=== PATIENT | female | born 1980 | race Caucasian/White ===

== ENCOUNTER 2017-08-18 16:36 | Emergency (ER) | payer OTHER ==
--- NOTE | 2017-08-18 19:16 | RAD ---
INDICATION: Intracranial injury COMPARISON: CT brain May 12, 2016 TECHNIQUE: Noncontrast axial source images were acquired from the skull base to the vertex. FINDINGS: Ventricles/sulci: The ventricles and cisterns are normal in size and configuration for age. Brain parenchyma: There is no focal parenchymal finding, evidence of intracranial mass, or intracranial mass effect. Intracranial hemorrhage:None. Extra-axial spaces: There are no abnormal extra axial fluid collections or evidence of extra-axial mass. Calvarium: There is no calvarial fracture or other calvarial abnormality. Scalp: There is no evidence of scalp or extracalvarial soft tissue abnormality. Paranasal sinuses/mastoid: The paranasal sinuses and mastoid air cells are clear. Other: None. IMPRESSION: NEGATIVE EXAMINATION
--- NOTE | 2017-08-18 19:39 | ED ---
Head Injury - HPI Summary HPI Summary: Patient presents to the ED with CC of headache after sustaining a head injury on Tuesday night after falling out of bed. She denies confusion or memory loss. For 3 days she has been experiencing N/V and 9/10 LORENZANA with intermittent blurry vision. She has had CT scans in the past and denies any abnormalities. Denies other symptoms. She does not work and has an unhealthy lifestyle. at bedside. She denies any bleeding or lesions, but has a cephalohematoma to the right parietal area. Denies LOC. Denies chest pain and SOB. She states her at home zofran and ibuprofen have not helped and has been taking her hydrocodone without improvement of pain. Denies blood thinners. - History Of Current Complaint Chief Complaint: EDHeadInjury Stated Complaint: FALL 08/14-HIT HEAD,PAIN & VOMITING Time Seen by Provider: 08/18/17 17:43 Hx Obtained From: Patient Hx Last Menstrual Period: 08/25/12 Mechanism Of Injury: Direct Blow Onset/Duration: Started Hours Ago Onset of Pain: Hours Severity Currently: Moderate Severity Initially: Moderate Pain Intensity: 9 Pain Scale Used: 0-10 Numeric Location of Head Injury: Parietal - right Character: Dull, Throbbing Alleviating Factor(s): Rest Associated Signs And Symptoms: Nausea, Vomiting - Risk Factors SDH Risk Factor: Negative - Allergies/Home Medications Allergies/Adverse Reactions: Allergies Allergy/AdvReac Type Severity Reaction Status Date / Time Ketorolac Tromethamine Allergy TURNS Verified 08/18/17 16:39 [From Toradol] BRIGHT RED PMH/Surg Hx/FS Hx/Imm Hx Previously Healthy: Yes Endocrine/Hematology History: Denies: Hx Anticoagulant Therapy, Hx Diabetes, Hx Thyroid Disease, Other Endocrine/Hematological Disorders Cardiovascular History: Denies: Hx Congestive Heart Failure, Hx Hypertension, Hx Pacemaker/ICD, Other Cardiovascular Problems/Disorders Respiratory History: Denies: Hx Asthma, Hx Chronic Obstructive Pulmonary Disease (COPD), Other Respiratory Problems/Disorders GI History: Reports: Hx Gall Bladder Disease, Other GI Disorders - appendectomy , rashi History: Reports: Hx Kidney Stones, Hx Renal Disease - Hx Kidney Stones, Other Problems/Disorders - hx of kidney stones - lithotripsy w/ stents Musculoskeletal History: Reports: Hx Arthritis, Hx Back Problems, Hx Fibromyalgia Denies: Other Musculoskeletal History Sensory History: Reports: Hx Contacts or Glasses Denies: Other Sensory Impairments Opthamlomology History: Reports: Hx Contacts or Glasses Denies: Other Sensory Impairments Neurological History: Reports: Hx Seizures, Other Neuro Impairments/Disorders - fibromyalgia Denies: Hx Dementia Psychiatric History: Reports: Hx Anxiety, Hx Depression Denies: Hx Substance Abuse, Other Psychiatric Issues/Disorders - Cancer History Cancer Type, Location and Year: cervical CA first dx May 2012 - Surgical History Surgery Procedure, Year, and Place: Hysterectomy 2012, tubal ligation 2000, appendectomy and cholecystectomy within last ten years, tonsillectomy and adenoidectomy 2003, stents in kidneys 2010, kidneystones lithotripsy 2009 - Immunization History Date of Tetanus Vaccine: Unk Date of Influenza Vaccine: None Immunizations Up to Date: Yes Infectious Disease History: No Infectious Disease History: Reports: Hx of Known/Suspected MRSA - Left armpit 4- 5 years ago Denies: Hx Hepatitis, Hx Human Immunodeficiency Virus (HIV), History Other Infectious Disease, Traveled Outside the [place] in Last 30 Days - Family History Known Family History: Positive: Cardiac Disease, Hypertension - Social History Occupation: Unemployed Lives: With Family Alcohol Use: None Hx Substance Use: No Substance Use Type: Reports: None Smoking Status (MU): Heavy Every Day Tobacco Smoker Type: Cigarettes Amount Used/How Often: < 1/2 ppd Length of Time of Smoking/Using Tobacco: 23 years Review of Systems Constitutional: Negative Negative: Fever, Chills, Fatigue Eyes: Negative Cardiovascular: Negative Negative: Shortness Of Breath, Cough Positive: Vomiting, Nausea Genitourinary: Negative Positive: no symptoms reported Musculoskeletal: Negative Skin: Negative Positive: Headache All Other Systems Reviewed And Are Negative: Yes Physical Exam Triage Information Reviewed: Yes Vital Signs On Initial Exam: Initial Vitals Temp Pulse Resp BP Pulse Ox 96.8 F 115 20 104/73 95 08/18/17 16:39 08/18/17 16:39 08/18/17 16:39 08/18/17 16:39 08/18/17 16:39 Vital Signs Reviewed: Yes Appearance: Positive: Well-Appearing, Obese Skin: Positive: Skin Color Reflects Adequate Perfusion Head/Face: Positive: Normal Head/Face Inspection Eyes: Positive: EOMI, SUDHIR, Conjunctiva Clear Neck: Positive: Nontender, No Lymphadenopathy Respiratory/Lung Sounds: Positive: Clear to Auscultation, Breath Sounds Present Cardiovascular: Positive: RRR, Pulses are Symmetrical in both Upper and Lower Extremities Musculoskeletal: Positive: Strength/ROM Intact Neurological: Positive: Speech Normal Psychiatric: Positive: Normal, Affect/Mood Appropriate - Grey Coma Scale Best Eye Response: 4 - Spontaneous Best Motor Response: 6 - Obeys Commands Best Verbal Response: 5 - Oriented Coma Scale Total: 15 Diagnostics - Vital Signs Vital Signs Temp Pulse Resp BP Pulse Ox 08/18/17 16:39 96.8 F 115 20 104/73 95 - Laboratory Lab Statement: Any lab studies that have been ordered have been reviewed, and results considered in the medical decision making process. Head Injury Course/Dx Course Of Treatment: Patient is evaluated for head injury. GCS score >15 at 2h post injury. No suspected open or depressed skull fx, no sign of basal skull fx , no hemotympanum, raccoon eyes, Battles sign, CSF tiffani-/rhinorrhea, no emesis after injury, age <64yo, no amnesia greater than 30 minutes prior to trauma, and mechanism of injury was minimal impact with no MVA or fall greater than 3 ft. Complete neuro exam completed and WNL. Normal head/face inspection with no cephalohematoma. Reflexes intact. EOMI, SUDHIR, visual acuity intact. No obvious confusion or memory loss per patient and family. MMSE OK. GCS 15. Patient oriented to person, place and date. No obvious deformity or signs of trauma. Finger to nose, heel to toe OK. Speech normal, facial symmetry, normal gait, CN II-III intact. Patient denies LOC. ROM, strength, reflexes in upper and lower extremity intact, sensation intact. Patient discharged with return precautions and post-concussive symptoms explained to patient. Patient agrees to follow up and return if needed. CT brain obtained d/t 04/[address] continuing symptoms[address] brain is negative. She is encouraged brain rest and is OK with discharge at this time. I have advised she follow up with Dr. Boone next week. She agrees. VS stable on discharge. Tachy on arrival, but on discharge she is at 98. - Diagnoses Differential Diagnosis/HQI/PQRI: Concussion With LOC, Concussion Without LOC Provider Diagnoses: Concussion Discharge - Discharge Plan Condition: Stable Disposition: HOME Patient Education Materials: Concussion (ED) Referrals: Keith Boone MD [Primary Care Provider] - 7 Days Additional Instructions: Brain rest as much as possible This includes rest, dark rooms, sleeping and not focusing on anything for long periods of time Take Tylenol for any headaches and follow up with Dr. Boone next week
[2017-08-18 20:00] VITALS: BP 110/62
== END 2017-08-18 20:00 | disposition home or self-care (01) ==
LOC: ED 16:36
DX: S06.0X0A Concussion without loss of consciousness, initial encounter (principal); R11.2 Nausea with vomiting, unspecified; R51 Headache; F17.210 Nicotine dependence, cigarettes, uncomplicated; W06.XXXA Fall from bed, initial encounter; Y92.9 Unspecified place or not applicable
CPT/HCPCS: 70450; 99281

== ENCOUNTER 2017-09-05 18:52 | Emergency (ER) | payer OTHER ==
[2017-09-05 20:28] LABS: ABS Basophils 0.1 10^3/ul (0-0.2); ABS Eosinophils 0.3 10^3/ul (0-0.6); ABS Lymphocytes 4.5 10^3/ul (1.0-4.8); ABS Monocytes 1.1 10^3/ul (0-0.8); ABS Neutrophils 8.8 10^3/ul (1.5-7.7); ABS Nucleated RBC 0 10^3/ul; Eosinophil % 1.7 % (0-6); Hematocrit 42 % (35-47); Hemoglobin 14.2 g/dl (12.0-16.0); Lymphocyte % 30.7 % (25-47); Mean Corpuscular HGB Conc 34 g/dl (31-36); Mean Corpuscular Hemoglobin 28 pg (27-31); Mean Corpuscular Volume 82 fL (80-97); Mean Platelet Volume 10 um3 (7.4-10.4); Nucleated Red Blood Cells % 0; Platelet Count 245 10^3/ul (150-450); Red Blood Count 5.13 10^6/ul (4.0-5.4); Red Cell Distribution Width 15 % (10.5-15); White Blood Count 14.6 10^3/ul (3.5-10.8)
--- NOTE | 2017-09-05 20:30 | RAD ---
INDICATION: Chest pain. COMPARISON: Comparison is made with a prior study from July 05, 2015. TECHNIQUE: A portable view of the chest was obtained. FINDINGS: Cardiac and mediastinal contours appear to be within normal limits. The lungs are clear. No pleural effusion is seen. IMPRESSION: NO EVIDENCE FOR ACUTE DISEASE.
[2017-09-05 20:43] LABS: EGFR Non-African American 62.4 (>60)
[2017-09-05 21:45] VITALS: BP 118/75
--- NOTE | 2017-09-06 06:25 | ED ---
Antonino Albrecht Thomas, scribed for Jewel Atkinson on 09/05/17 at 1957 . HPI Chest Pain - HPI Summary HPI Summary: The patient is a 37 year old female presenting to the emergency department complaining of left-sided chest pain that has been intermittent for the last four days ago. The pain radiates to her left shoulder and her back. The pain is rated 8/10. She describes the pain as crushing. The pain is aggravated by palpation. The patient additionally complains of shortness of breath. The patient denies nausea, vomiting, and dizziness. Past medical history includes HTN. She denies CAD and DM. She is a current smoker. - History of Current Complaint Chief Complaint: EDChestPainROMI Time Seen by Provider: 09/05/17 19:51 Hx Obtained From: Patient Hx Last Menstrual Period: 08/25/12 Onset/Duration: Started Days Ago - 4 Timing: Intermittent, Lasting Days - 4 Current Severity: Severe Pain Intensity: 8 Pain Scale Used: 0-10 Numeric Chest Pain Location: Discrete at: - Left-sided Chest Pain Radiates: Yes Chest Pain Radiates To:: Shoulder - right Character: Crushing Aggravating Factor(s): Other: - Palpation Associated Signs and Symptoms: Positive: Chest Pain, Shortness of Breath. Negative: Dizziness, Fever, Nausea, Vomiting Related History: Obesity - Allergy/Home Medications Allergies/Adverse Reactions: Allergies Allergy/AdvReac Type Severity Reaction Status Date / Time Ketorolac Tromethamine Allergy TURNS Verified 09/05/17 19:08 [From Toradol] BRIGHT RED PMH/Surg Hx/FS Hx/Imm Hx Endocrine/Hematology History: Denies: Hx Anticoagulant Therapy, Hx Diabetes, Hx Thyroid Disease, Other Endocrine/Hematological Disorders Cardiovascular History: Reports: Hx Hypertension Denies: Hx Congestive Heart Failure, Hx Coronary Artery Disease, Hx Pacemaker /ICD, Other Cardiovascular Problems/Disorders Respiratory History: Denies: Hx Asthma, Hx Chronic Obstructive Pulmonary Disease (COPD), Other Respiratory Problems/Disorders GI History: Reports: Hx Gall Bladder Disease, Other GI Disorders - appendectomy , rashi History: Reports: Hx Kidney Stones, Hx Renal Disease - Hx Kidney Stones, Other Problems/Disorders - hx of kidney stones - lithotripsy w/ stents Musculoskeletal History: Reports: Hx Arthritis, Hx Back Problems, Hx Fibromyalgia Denies: Other Musculoskeletal History Sensory History: Reports: Hx Contacts or Glasses Denies: Other Sensory Impairments Opthamlomology History: Reports: Hx Contacts or Glasses Denies: Other Sensory Impairments Neurological History: Reports: Hx Seizures, Other Neuro Impairments/Disorders - fibromyalgia Denies: Hx Dementia Psychiatric History: Reports: Hx Anxiety, Hx Depression Denies: Hx Substance Abuse, Other Psychiatric Issues/Disorders - Cancer History Cancer Type, Location and Year: cervical CA first dx May 2012 - Surgical History Surgery Procedure, Year, and Place: Hysterectomy 2012, tubal ligation 2000, appendectomy and cholecystectomy within last ten years, tonsillectomy and adenoidectomy 2003, stents in kidneys 2010, kidneystones lithotripsy 2009 - Immunization History Date of Tetanus Vaccine: Unk Date of Influenza Vaccine: None Infectious Disease History: No Infectious Disease History: Reports: Hx of Known/Suspected MRSA - Left armpit 4- 5 years ago Denies: Hx Hepatitis, Hx Human Immunodeficiency Virus (HIV), History Other Infectious Disease, Traveled Outside the [place] in Last 30 Days - Family History Known Family History: Positive: Cardiac Disease, Hypertension - Social History Alcohol Use: None Hx Substance Use: No Substance Use Type: Reports: None Smoking Status (MU): Heavy Every Day Tobacco Smoker Type: Cigarettes Amount Used/How Often: < 1/2 ppd Length of Time of Smoking/Using Tobacco: 23 years Review of Systems Negative: Fever Positive: Chest Pain Positive: Shortness Of Breath Negative: Vomiting, Nausea Neurological: Negative - dizziness All Other Systems Reviewed And Are Negative: Yes Physical Exam - Summary Physical Exam Summary: Appearance: Well appearing, no pain distress Skin: warm, dry, reflects adequate perfusion Head/face: normal Eyes: EOMI, SUDHIR ENT: normal Neck: supple, non-tender Respiratory: CTA, breath sounds present Cardiovascular: RRR, pulses symmetrical Chest: Her sternum is tender to the left chest. Abdomen: non-tender, soft Bowel: present Musculoskeletal: normal, strength/ROM intact Neuro: normal, sensory motor intact, A&Ox3 Triage Information Reviewed: Yes Vital Signs On Initial Exam: Initial Vitals Temp Pulse Resp BP Pulse Ox 98.4 F 79 18 120/76 99 09/05/17 19:06 09/05/17 19:06 09/05/17 19:06 09/05/17 19:06 09/05/17 19:06 Vital Signs Reviewed: Yes Diagnostics - Vital Signs Vital Signs Temp Pulse Resp BP Pulse Ox 09/05/17 19:06 98.4 F 79 18 120/76 99 - Laboratory Lab Results: Lab Results 09/05/17 09/05/17 09/05/17 Range/Units 20:16 20:16 20:16 WBC 14.6 H (3.5-10.8) 10^3/ul RBC 5.13 (4.0-5.4) 10^6/ul Hgb 14.2 (12.0-16.0) g/dl Hct 42 (35-47) % MCV 82 (80-97) fL MCH 28 (27-31) pg MCHC 34 (31-36) g/dl RDW 15 (10.5-15) % Plt Count 245 (150-450) 10^3/ul MPV 10 (7.4-10.4) um3 Neut % (Auto) 59.9 (38-83) % Lymph % (Auto) 30.7 (25-47) % Walton % (Auto) 7.2 (1-9) % Eos % (Auto) 1.7 (0-6) % Baso % (Auto) 0.5 (0-2) % Absolute Neuts (auto) 8.8 H (1.5-7.7) 10^3/ul Absolute Lymphs (auto) 4.5 (1.0-4.8) 10^3/ul Absolute Monos (auto) 1.1 H (0-0.8) 10^3/ul Absolute Eos (auto) 0.3 (0-0.6) 10^3/ul Absolute Basos (auto) 0.1 (0-0.2) 10^3/ul Absolute Nucleated RBC 0 10^3/ul Nucleated RBC % 0 APTT 30.2 (26.0-36.3) seconds D-Dimer, Quantitative < 200 (Less Than 230) ng/mL Sodium 136 (133-145) mmol/L Potassium 3.8 (3.5-5.0) mmol/L Chloride 100 L (101-111) mmol/L Carbon Dioxide 29 (22-32) mmol/L Anion Gap 7 (2-11) mmol/L BUN 18 (6-24) mg/dL Creatinine 0.99 H (0.51-0.95) mg/dL Est GFR ( Amer) 80.3 (>60) Est GFR (Non-Af Amer) 62.4 (>60) BUN/Creatinine Ratio 18.2 (8-20) Glucose 107 H (70-100) mg/dL Lactic Acid (0.5-2.0) mmol/L Calcium 9.3 (8.6-10.3) mg/dL Total Bilirubin 0.20 (0.2-1.0) mg/dL AST 23 (13-39) U/L ALT 31 (7-52) U/L Alkaline Phosphatase 101 (34-104) U/L Total Creatine Kinase 48 (10-223) U/L CK-MB (CK-2) 1.0 (0.6-6.3) ng/mL Troponin I 0.00 (<0.04) ng/mL Total Protein 7.6 (6.4-8.9) g/dL Albumin 3.8 (3.2-5.2) g/dL Globulin 3.8 (2-4) g/dL Albumin/Globulin Ratio 1.0 (1-3) TSH 2.23 (0.34-5.60) mcIU/mL 09/05/17 Range/Units 20:16 WBC (3.5-10.8) 10^3/ul RBC (4.0-5.4) 10^6/ul Hgb (12.0-16.0) g/dl Hct (35-47) % MCV (80-97) fL MCH (27-31) pg MCHC (31-36) g/dl RDW (10.5-15) % Plt Count (150-450) 10^3/ul MPV (7.4-10.4) um3 Neut % (Auto) (38-83) % Lymph % (Auto) (25-47) % Walton % (Auto) (1-9) % Eos % (Auto) (0-6) % Baso % (Auto) (0-2) % Absolute Neuts (auto) (1.5-7.7) 10^3/ul Absolute Lymphs (auto) (1.0-4.8) 10^3/ul Absolute Monos (auto) (0-0.8) 10^3/ul Absolute Eos (auto) (0-0.6) 10^3/ul Absolute Basos (auto) (0-0.2) 10^3/ul Absolute Nucleated RBC 10^3/ul Nucleated RBC % APTT (26.0-36.3) seconds D-Dimer, Quantitative (Less Than 230) ng/mL Sodium (133-145) mmol/L Potassium (3.5-5.0) mmol/L Chloride (101-111) mmol/L Carbon Dioxide (22-32) mmol/L Anion Gap (2-11) mmol/L BUN (6-24) mg/dL Creatinine (0.51-0.95) mg/dL Est GFR ( Amer) (>60) Est GFR (Non-Af Amer) (>60) BUN/Creatinine Ratio (8-20) Glucose (70-100) mg/dL Lactic Acid 1.4 (0.5-2.0) mmol/L Calcium (8.6-10.3) mg/dL Total Bilirubin (0.2-1.0) mg/dL AST (13-39) U/L ALT (7-52) U/L Alkaline Phosphatase (34-104) U/L Total Creatine Kinase (10-223) U/L CK-MB (CK-2) (0.6-6.3) ng/mL Troponin I (<0.04) ng/mL Total Protein (6.4-8.9) g/dL Albumin (3.2-5.2) g/dL Globulin (2-4) g/dL Albumin/Globulin Ratio (1-3) TSH (0.34-5.60) mcIU/mL Result Diagrams: 09/05/17 20:16 09/05/17 20:16 Lab Statement: Any lab studies that have been ordered have been reviewed, and results considered in the medical decision making process. - Radiology CXR Xray Interpretation: No Acute Changes - NO EVIDENCE FOR ACUTE DISEAES. Dr. Atkinson has reviewed this report. Radiology Interpretation Completed By: Radiologist - EKG 19:02 Cardiac Rate: Tachycardia EKG Rhythm: Sinus Tachycardia - at 105 BPM Re-Evaluation - Re-Evaluation First Eval Re-Evaluation Time: 21:35 Change: Unchanged Comment: The patient refused admission. Chest Pain Course/Dx - Course Assessment/Plan: The patient is a 37 year old female presenting to the emergency department complaining of left-sided chest pain that has been intermittent for the last four days ago. Bloodwork, CXR, and EKG were obtained. The patient wants to leave. We advised her to stay and repeat troponin, cardiology consult, and stress test in the morning. The patient wants to leave and follow up as an outpatient with her primary care provider. She refused admission to [facility] [place]. She will be discharged. - Chest Pain Differential Diagnosis/HQI/PQRI: Angina, Chest Wall, Lower Respiratory Infection - Diagnoses Provider Diagnoses: Atypical chest pain Discharge - Discharge Plan Condition: Stable Disposition: HOME Discharge Disposition Comment: Patient refused admission. Patient Education Materials: Chest Pain (ED) Referrals: Keith Boone MD [Primary Care Provider] - As Soon As Possible Additional Instructions: Follow up with your primary care provider as soon as possible. You may return to the emergency department at any time. The documentation as recorded by the Antonino prince Thomas accurately reflects the service I personally performed and the decisions made by , Jewel Atkinson.
== END 2017-09-05 21:50 | disposition home or self-care (01) ==
LOC: ED 18:52
DX: R07.89 Other chest pain (principal); F17.210 Nicotine dependence, cigarettes, uncomplicated; Z88.5 Allergy status to narcotic agent
CPT/HCPCS: 36415; 71045; 80053; 82550; 82553; 83605; 84443; 84484; 85025; 85379; 85730; 93005; 99282

== ENCOUNTER 2017-10-27 17:24 | Emergency (ER) | payer OTHER ==
[2017-10-27] MEDS ORDERED: NS 0.9% 1000 ML* 1,000 ML IV ONE (19:10)
[2017-10-27] MEDS ORDERED: Ondansetron INJ* 2 MG/ML VIAL IV ONE ×2 (19:10→22:31)
[2017-10-27] MEDS ORDERED: Morphine INJ* 10 MG/ML 1 ML CARPUJECT IV ONE (19:10)
[2017-10-27 19:48] LABS: ABS Basophils 0.1 10^3/ul (0-0.2); ABS Eosinophils 0.2 10^3/ul (0-0.6); ABS Lymphocytes 2.8 10^3/ul (1.0-4.8); ABS Monocytes 1.2 10^3/ul (0-0.8); ABS Neutrophils 13.8 10^3/ul (1.5-7.7); ABS Nucleated RBC 0 10^3/ul; Eosinophil % 1.3 % (0-6); Hematocrit 43 % (35-47); Hemoglobin 14.6 g/dl (12.0-16.0); Lymphocyte % 15.6 % (25-47); Mean Corpuscular HGB Conc 34 g/dl (31-36); Mean Corpuscular Hemoglobin 28 pg (27-31); Mean Corpuscular Volume 82 fL (80-97); Mean Platelet Volume 9.4 um3 (7.4-10.4); Nucleated Red Blood Cells % 0.2; Platelet Count 253 10^3/ul (150-450); Red Cell Distribution Width 15 % (10.5-15); White Blood Count 18.1 10^3/ul (3.5-10.8)
[2017-10-27 19:54] LABS: Urine Appearance Cloudy; Urine Blood Negative (Negative); Urine Color Yellow; Urine Ketones Trace (Negative); Urine Protein Negative (Negative); Urine Specific Gravity 1.033 (1.010-1.030); Urine Urobilinogen Negative (Negative)
[2017-10-27 20:05] LABS: EGFR Non-African American 73.5 (>60)
[2017-10-27] MEDS ORDERED: Famotidine IV* 10 MG/ML 2 ML (20 mg) IV SLOW PU ONE (20:23)
[2017-10-27] MEDS ORDERED: HYDROmorphone INJ* 2 MG/ML CARPUJECT SYRINGE IV SLOW PU ONE (20:25)
--- NOTE | 2017-10-27 21:26 | RAD ---
CLINICAL HISTORY: Right lower quadrant pain, right flank pain COMPARISON: April 22, 2015 TECHNIQUE: Multiple contiguous axial CT scans were obtained of the abdomen and pelvis, without intravenous contrast enhancement. Coronal and sagittal multiplanar reformations are submitted for review. Oral contrast was not administered. FINDINGS: The study is limited by the lack of intravenous contrast. This limits evaluation of the solid organs and vasculature. LUNG BASES: The lung bases are clear. LIVER: The liver is normal in shape, size, contour, and attenuation. BILE DUCTS: There is no intrahepatic or extrahepatic biliary dilatation. GALLBLADDER: The gallbladder is not visualized. Surgical clips are noted in the gallbladder fossa. PANCREAS: The pancreas is normal, without mass or ductal dilatation. SPLEEN: Normal in size and appearance. UPPER GI TRACT: Evaluation of the gastrointestinal tract is limited by incomplete gastric distention. The upper GI tract is unremarkable. SMALL BOWEL AND MESENTERY: The small bowel is normal in contour, course, and caliber. There is no obstruction or dilatation. COLON: The colon is normal in contour, course, caliber. There is no pericolonic inflammatory change. Surgical clips are noted at the level of the cecum consistent with previous appendectomy. There is no inflammatory change within the right lower quadrant ADRENALS: There is a low-attenuation left adrenal nodule most consistent with an adrenal adenoma. This can be identified in retrospect on the previous examination and is stable.. KIDNEYS: The kidneys are normal in shape, size, contour, and axis. There is no hydronephrosis or nephrolithiasis. BLADDER: The bladder is incompletely distended but is grossly normal. PELVIC ORGANS: The pelvic organs are not visualized. AORTA: There is mild atherosclerosis of the common iliac arteries. There is no appreciable aneurysmal dilatation. IVC: Unremarkable LYMPH NODES: There is no lymphadenopathy by size criteria. ABDOMINAL WALL: There is no evidence for abdominal wall hernia. BONES AND SOFT TISSUES: There are mild diffuse degenerative changes. OTHER: None IMPRESSION: NO HYDRONEPHROSIS OR NEPHROLITHIASIS. NO ACUTE NONCONTRAST CT PATHOLOGY OF THE VISUALIZED ABDOMEN OR PELVIS..
[2017-10-27] MEDS ORDERED: methylPREDNISolone SOD 40 MG* 1 ML VIAL IV ONE (21:43)
[2017-10-27 23:11] VITALS: BP 109/72
--- NOTE | 2017-10-28 16:58 | ED ---
Junior Albrecht Stephanie, scribed for Sven Wooten MD on 10/27/17 at 1922 . GI/ HPI - HPI Summary HPI Summary: The pt is a 37 y/o F presenting to the ED with N/V/D that began on 10/23/17. Symptoms include abd pain that began today at 15:00 while attempting to have a BM. The abd pain is described as a sharp/stabbing pain. The pt states she vomited about 8 times today. She states that she feels increased pressure while urinating like she is trying to give . The pt reports she has recent contact with a son with influenza. - History of Current Complaint Chief Complaint: EDNauseaVomitDiarrh Time Seen by Provider: 10/27/17 19:02 Stated Complaint: VOMITING/DIARRHEA/RT SIDE PAIN Hx Obtained From: Patient Hx Last Menstrual Period: 08/25/12 Onset/Duration: Started Days Ago - 4, Still Present Timing: Intermittent Pain Intensity: 9 Location of Pain: RLQ Pain Characteristics: Sharp Associated Signs and Symptoms: Positive: Nausea, Vomiting, Diarrhea, Abdominal Pain, Other: - pressure while urinating Aggravating Factor(s): Nothing Alleviating Factor(s): Nothing - Allergy/Home Medications Allergies/Adverse Reactions: Allergies Allergy/AdvReac Type Severity Reaction Status Date / Time ketorolac [From Toradol] Allergy Swelling Verified 10/27/17 19:16 Of Face,Lips,& Throat PMH/Surg Hx/FS Hx/Imm Hx Endocrine/Hematology History: Denies: Hx Anticoagulant Therapy, Hx Diabetes, Hx Thyroid Disease, Other Endocrine/Hematological Disorders Cardiovascular History: Reports: Hx Hypertension Denies: Hx Congestive Heart Failure, Hx Coronary Artery Disease, Hx Pacemaker /ICD, Other Cardiovascular Problems/Disorders Respiratory History: Denies: Hx Asthma, Hx Chronic Obstructive Pulmonary Disease (COPD), Other Respiratory Problems/Disorders GI History: Reports: Hx Gall Bladder Disease, Other GI Disorders - appendectomy , rashi History: Reports: Hx Kidney Stones, Hx Renal Disease - Hx Kidney Stones, Other Problems/Disorders - hx of kidney stones - lithotripsy w/ stents Musculoskeletal History: Reports: Hx Arthritis, Hx Back Problems, Hx Fibromyalgia Denies: Other Musculoskeletal History Sensory History: Reports: Hx Contacts or Glasses Denies: Other Sensory Impairments Opthamlomology History: Reports: Hx Contacts or Glasses Denies: Other Sensory Impairments Neurological History: Reports: Hx Seizures, Other Neuro Impairments/Disorders - fibromyalgia Denies: Hx Dementia Psychiatric History: Reports: Hx Anxiety, Hx Depression Denies: Hx Substance Abuse, Other Psychiatric Issues/Disorders - Cancer History Cancer Type, Location and Year: cervical CA first dx May 2012 - Surgical History Surgery Procedure, Year, and Place: Hysterectomy 2012, tubal ligation 2000, appendectomy and cholecystectomy within last ten years, tonsillectomy and adenoidectomy 2003, stents in kidneys 2010, kidneystones lithotripsy 2009 - Immunization History Date of Tetanus Vaccine: Unk Date of Influenza Vaccine: None Infectious Disease History: No Infectious Disease History: Reports: Hx of Known/Suspected MRSA - Left armpit 4- 5 years ago Denies: Hx Hepatitis, Hx Human Immunodeficiency Virus (HIV), History Other Infectious Disease, Traveled Outside the [place] in Last 30 Days - Family History Known Family History: Positive: Cardiac Disease, Hypertension - Social History Occupation: Unemployed Lives: With Family Alcohol Use: None Hx Substance Use: No Substance Use Type: Reports: None Smoking Status (MU): Heavy Every Day Tobacco Smoker Type: Cigarettes Amount Used/How Often: < 1/2 ppd Length of Time of Smoking/Using Tobacco: 23 years Review of Systems Negative: Fever Positive: Abdominal Pain, Vomiting, Diarrhea, Nausea Positive: other - pressure during urination All Other Systems Reviewed And Are Negative: Yes Physical Exam - Summary Physical Exam Summary: Appearance: Well-appearing, no distress, Well-nourished Skin: Warm, color reflects adequate perfusion Head: Normal Head/Face inspection Eyes: Conjunctiva clear ENT: dry mucus membranes - mild Neck: Supple, no nodes, Respiratory: Lungs clear, Normal breath sounds, no respiratory distress Cardio: RRR, No murmur, pulses normal, brisk capillary refill Abdomen: soft, nontender, no guarding, no rebound, moderate R flank pain, mild RUQ pain Bowel sounds: present Musculoskeletal: Strength Intact/ ROM intact. No calf tenderness. No edema. Neuro: Alert, muscle tone normal, facial symmetry, speech normal, sensory/motor intact Psychological: Normal Triage Information Reviewed: Yes Vital Signs On Initial Exam: Initial Vitals Temp Pulse Resp BP Pulse Ox 98.3 F 117 22 111/86 96 10/27/17 17:32 10/27/17 17:32 10/27/17 17:32 10/27/17 17:32 10/27/17 17:32 Vital Signs Reviewed: Yes Diagnostics - Vital Signs Vital Signs Temp Pulse Resp BP Pulse Ox 10/27/17 17:32 98.3 F 117 22 111/86 96 - Laboratory Lab Results: Lab Results 10/27/17 10/27/17 10/27/17 Range/Units 19:30 19:30 19:30 WBC 18.1 H (3.5-10.8) 10^3/ul RBC 5.20 (4.0-5.4) 10^6/ul Hgb 14.6 (12.0-16.0) g/dl Hct 43 (35-47) % MCV 82 (80-97) fL MCH 28 (27-31) pg MCHC 34 (31-36) g/dl RDW 15 (10.5-15) % Plt Count 253 (150-450) 10^3/ul MPV 9.4 (7.4-10.4) um3 Neut % (Auto) 76.4 (38-83) % Lymph % (Auto) 15.6 L (25-47) % Arthur % (Auto) 6.4 (0-7) % Eos % (Auto) 1.3 (0-6) % Baso % (Auto) 0.3 (0-2) % Absolute Neuts (auto) 13.8 H (1.5-7.7) 10^3/ul Absolute Lymphs (auto) 2.8 (1.0-4.8) 10^3/ul Absolute Monos (auto) 1.2 H (0-0.8) 10^3/ul Absolute Eos (auto) 0.2 (0-0.6) 10^3/ul Absolute Basos (auto) 0.1 (0-0.2) 10^3/ul Absolute Nucleated RBC 0 10^3/ul Nucleated RBC % 0.2 Sodium 135 (133-145) mmol/L Potassium 3.2 L (3.5-5.0) mmol/L Chloride 100 L (101-111) mmol/L Carbon Dioxide 27 (22-32) mmol/L Anion Gap 8 (2-11) mmol/L BUN 18 (6-24) mg/dL Creatinine 0.86 (0.51-0.95) mg/dL Est GFR ( Amer) 94.5 (>60) Est GFR (Non-Af Amer) 73.5 (>60) BUN/Creatinine Ratio 20.9 H (8-20) Glucose 93 (70-100) mg/dL Lactic Acid 0.9 (0.5-2.0) mmol/L Calcium 10.0 (8.6-10.3) mg/dL Total Bilirubin 0.30 (0.2-1.0) mg/dL AST 20 (13-39) U/L ALT 35 (7-52) U/L Alkaline Phosphatase 85 (34-104) U/L Total Protein 7.9 (6.4-8.9) g/dL Albumin 4.1 (3.2-5.2) g/dL Globulin 3.8 (2-4) g/dL Albumin/Globulin Ratio 1.1 (1-3) Lipase 13 (11.0-82.0) U/L Urine Color Urine Appearance Urine pH (5-9) Ur Specific [place] (1.010-1.030) Urine Protein (Negative) Urine Ketones (Negative) Urine Blood (Negative) Urine Nitrate (Negative) Urine Bilirubin (Negative) Urine Urobilinogen (Negative) Ur Leukocyte Esterase (Negative) Urine WBC (Auto) (Absent) Urine RBC (Auto) (Absent) Ur Squamous Epith Cells (Absent) Amorphous Crystals (Absent) Urine Bacteria (Absent) Urine Glucose (Negative) 10/27/17 Range/Units 19:30 WBC (3.5-10.8) 10^3/ul RBC (4.0-5.4) 10^6/ul Hgb (12.0-16.0) g/dl Hct (35-47) % MCV (80-97) fL MCH (27-31) pg MCHC (31-36) g/dl RDW (10.5-15) % Plt Count (150-450) 10^3/ul MPV (7.4-10.4) um3 Neut % (Auto) (38-83) % Lymph % (Auto) (25-47) % Arthur % (Auto) (0-7) % Eos % (Auto) (0-6) % Baso % (Auto) (0-2) % Absolute Neuts (auto) (1.5-7.7) 10^3/ul Absolute Lymphs (auto) (1.0-4.8) 10^3/ul Absolute Monos (auto) (0-0.8) 10^3/ul Absolute Eos (auto) (0-0.6) 10^3/ul Absolute Basos (auto) (0-0.2) 10^3/ul Absolute Nucleated RBC 10^3/ul Nucleated RBC % Sodium (133-145) mmol/L Potassium (3.5-5.0) mmol/L Chloride (101-111) mmol/L Carbon Dioxide (22-32) mmol/L Anion Gap (2-11) mmol/L BUN (6-24) mg/dL Creatinine (0.51-0.95) mg/dL Est GFR ( Amer) (>60) Est GFR (Non-Af Amer) (>60) BUN/Creatinine Ratio (8-20) Glucose (70-100) mg/dL Lactic Acid (0.5-2.0) mmol/L Calcium (8.6-10.3) mg/dL Total Bilirubin (0.2-1.0) mg/dL AST (13-39) U/L ALT (7-52) U/L Alkaline Phosphatase (34-104) U/L Total Protein (6.4-8.9) g/dL Albumin (3.2-5.2) g/dL Globulin (2-4) g/dL Albumin/Globulin Ratio (1-3) Lipase (11.0-82.0) U/L Urine Color Yellow Urine Appearance Cloudy Urine pH 5.0 (5-9) Ur Specific [place] 1.033 H (1.010-1.030) Urine Protein Negative (Negative) Urine Ketones Trace A (Negative) Urine Blood Negative (Negative) Urine Nitrate Negative (Negative) Urine Bilirubin Negative (Negative) Urine Urobilinogen Negative (Negative) Ur Leukocyte Esterase 1+ A (Negative) Urine WBC (Auto) Trace(0-5/hpf) (Absent) Urine RBC (Auto) Absent (Absent) Ur Squamous Epith Cells Present A (Absent) Amorphous Crystals Present A (Absent) Urine Bacteria Absent (Absent) Urine Glucose Negative (Negative) Result Diagrams: 10/27/17 19:30 10/27/17 19:30 Lab Statement: Any lab studies that have been ordered have been reviewed, and results considered in the medical decision making process. - CT Abdomen/pelvis CT Interpretation: No Acute Changes CT Interpretation Completed By: Radiologist - NO HYDRONEPHROSIS OR NEPHROLITHIASIS. NO ACUTE NONCONTRAST CT PATHOLOGY OF THE VISUALIZED ABDOMEN OR PELVIS..ED physician has reviewed this report and agrees. Re-Evaluation - Re-Evaluation First Eval Re-Evaluation Time: 20:20 Change: Improved Comment: Pt states nausea resolved, however she continues to have right flank/ RUQ abdominal pain. Pt requesting ice chips. Will continue IVF, plan for second dose IV analgesia, IV antacid, and will obtain CT abd/pelv. Second Eval Re-Evaluation Time: 21:43 Change: Improved Comment: Pt's pain improved with second dose IV analgesia. pt tolerating po without difficulty. pt resting comfortably in bed. GIGU Course/Dx - Course Assessment/Plan: Pt symptoms most consistent with acute enteritis vs colitis. Plan for symptomatic tx with close f/u. - Diagnoses Differential Diagnoses - Female: Abdominal Aortic Aneurysm, Cervicitis, Constipation, Colitis, Cystitis, Diarrhea, Diverticulosis, Endometriosis, Enterocolitis, Irritable Bowel Syndrome, Ischemic Bowel, Ovarian Cyst, Ovarian Torsion, Renal Colic, Urinary Tract Infection Provider Diagnoses: Gastroenteritis Discharge - Sign-Out/Discharge Documenting (check all that apply): Discharge - Discharge Plan Condition: Improved Disposition: HOME Prescriptions: predniSONE TAB* [Deltasone TAB*] 60 mg PO DAILY 2 Days #6 tab Promethazine TAB* [Phenergan TAB*] 25 mg PO Q6H PRN #8 tab PRN Reason: Nausea traMADol TAB* [Ultram*] 50 mg PO Q6HR PRN #10 tab MDD 200 mg PRN Reason: Pain Patient Education Materials: Gastroenteritis (ED) Referrals: Keith Boone MD [Primary Care Provider] - 2 Days - Billing Disposition and Condition Condition: IMPROVED Disposition: HOME The documentation as recorded by the Junior prince Stephanie accurately reflects the service I personally performed and the decisions made by , Sven Wooten MD.
== END 2017-10-27 23:15 | disposition home or self-care (01) ==
LOC: ED 17:24
DX: K52.9 Noninfective gastroenteritis and colitis, unspecified (principal); R11.2 Nausea with vomiting, unspecified; R19.7 Diarrhea, unspecified; R10.9 Unspecified abdominal pain; F17.210 Nicotine dependence, cigarettes, uncomplicated
CPT/HCPCS: 36415; 74176; 80053; 81003; 81015; 83605; 83690; 85025; 87086; 96374; 96375; 99284; J1170; J2270; J2405; J2920

== ENCOUNTER 2017-12-22 18:38 | Emergency (ER) | payer OTHER ==
[2017-12-22 20:48] LABS: ABS Basophils 0.1 10^3/ul (0-0.2); ABS Eosinophils 0.2 10^3/ul (0-0.6); ABS Lymphocytes 2.7 10^3/ul (1.0-4.8); ABS Monocytes 0.9 10^3/ul (0-0.8); ABS Neutrophils 11.6 10^3/ul (1.5-7.7); ABS Nucleated RBC 0 10^3/ul; Hematocrit 44 % (35-47); Hemoglobin 14.7 g/dl (12.0-16.0); Lymphocyte % 17.3 % (25-47); Mean Corpuscular HGB Conc 33 g/dl (31-36); Mean Corpuscular Hemoglobin 28 pg (27-31); Mean Corpuscular Volume 85 fL (80-97); Mean Platelet Volume 9.7 um3 (7.4-10.4); Nucleated Red Blood Cells % 0.1; Platelet Count 266 10^3/ul (150-450); Red Blood Count 5.21 10^6/ul (4.0-5.4); Red Cell Distribution Width 15 % (10.5-15); White Blood Count 15.5 10^3/ul (3.5-10.8)
[2017-12-22 21:04] LABS: EGFR Non-African American 79.9 (>60)
[2017-12-22] MEDS ORDERED: Morphine VIAL* 4 MG/ML VIAL (1 ml vial) IV ONE (21:55)
[2017-12-22] MEDS ORDERED: diPHENhydraMINE IV* 50 MG/ML 1 ml VIAL (BENADRYL) IV ONE (21:55)
[2017-12-22] MEDS ORDERED: NS 0.9% 1000 ML* 1,000 ML IV ONE (21:55)
[2017-12-23] MEDS ORDERED: oxyCODONE/Acetamin 5/325 MG* TAB PO ONE (00:05)
[2017-12-23 00:18] LABS: Urine Appearance Cloudy; Urine Blood Negative (Negative); Urine Color Yellow; Urine Ketones Negative (Negative); Urine Protein Negative (Negative); Urine Specific Gravity 1.024 (1.010-1.030); Urine Urobilinogen Negative (Negative)
[2017-12-23 00:48] VITALS: BP 101/59
--- NOTE | 2017-12-23 04:36 | ED ---
Michael Albrecht Angela, scribed for Salbador Montaño MD on 12/22/17 at 2201 . Abdominal Pain/Female - HPI Summary HPI Summary: This pt is a 37 y/o female presenting to [facility] c/o left flank pain since 12:30 today. Pt reports her pain began suddenly at approximately 12:30 today. She notes her left flank pain is described as sharp and radiates to her left sided back. Pt additionally states difficulty urinating and having "to push to urinate." She is unsure if she had hematuria. Pt notes she has been able to move her bowels ok. Denies chest pain, SOB, nausea. Pt has hx of kidney stones and today's symptoms are similar to this. Allergic to Toradol. Pt takes hydrocodone for the pain PRN. PMHx includes depression, HTN, seizure. She notes tobacco use but denies alcohol or drug use. - History of Current Complaint Chief Complaint: EDFlankPain Stated Complaint: LT FLANK PAIN Time Seen by Provider: 12/22/17 21:51 Hx Obtained From: Patient Hx Last Menstrual Period: 08/25/12 Onset/Duration: Lasting Hours, Still Present Timing: Hours Severity Currently: Severe Pain Intensity: 9 Pain Scale Used: 0-10 Numeric Location: Flank - left Radiates: Yes Radiates to: Back Character: Sharp Aggravating Factor(s): Nothing Alleviating Factor(s): Nothing Associated Signs and Symptoms: Positive: Urinary Symptoms - difficulty urinating. Negative: Fever, Chest Pain, Nausea, Vomiting Allergies/Adverse Reactions: Allergies Allergy/AdvReac Type Severity Reaction Status Date / Time ketorolac [From Toradol] Allergy Swelling Verified 12/22/17 18:43 Of Face,Lips,& Throat Home Medications: Home Medications Amitriptyline TAB* [Elavil TAB*] 125 mg PO BEDTIME 12/22/17 [History Confirmed 12/22/17] Carisoprodol TAB* [Soma TAB*] 350 mg PO TID PRN 12/22/17 [History Confirmed ] Escitalopram (NF) [Lexapro 20 mg (NF)] 20 mg PO DAILY 12/22/17 [History Confirmed 12/22/17] HYDROcodone/ACETAMIN 5-325 MG* [[place] 5-325 TAB*] 1 tab PO Q6H PRN MDD 4 tablets 12/22/17 [History Confirmed 12/22/17] Lacosamide TAB* [Vimpat TAB*] 100 mg PO BID 12/22/17 [History Confirmed 12/22/17 ] Lisinopril/HCTZ 20/12.5(NF) [Zestoretic 20/12.5(NF)] 1 tab PO DAILY 12/22/17 [ History Confirmed 12/22/17] Omeprazole CAP* [Prilosec CAP* 20 MG] 40 mg PO DAILY 12/22/17 [History Confirmed 12/22/17] PMH/Surg Hx/FS Hx/Imm Hx Endocrine/Hematology History: Denies: Hx Anticoagulant Therapy, Hx Diabetes, Hx Thyroid Disease, Other Endocrine/Hematological Disorders Cardiovascular History: Reports: Hx Hypertension Denies: Hx Congestive Heart Failure, Hx Coronary Artery Disease, Hx Pacemaker /ICD, Other Cardiovascular Problems/Disorders Respiratory History: Denies: Hx Asthma, Hx Chronic Obstructive Pulmonary Disease (COPD), Other Respiratory Problems/Disorders GI History: Reports: Hx Gall Bladder Disease, Other GI Disorders - appendectomy , rashi History: Reports: Hx Kidney Stones, Hx Renal Disease - Hx Kidney Stones, Other Problems/Disorders - hx of kidney stones - lithotripsy w/ stents Musculoskeletal History: Reports: Hx Arthritis, Hx Back Problems, Hx Fibromyalgia Denies: Other Musculoskeletal History Sensory History: Reports: Hx Contacts or Glasses Denies: Other Sensory Impairments Opthamlomology History: Reports: Hx Contacts or Glasses Denies: Other Sensory Impairments Neurological History: Reports: Hx Seizures, Other Neuro Impairments/Disorders - fibromyalgia Denies: Hx Dementia Psychiatric History: Reports: Hx Anxiety, Hx Depression Denies: Hx Substance Abuse, Other Psychiatric Issues/Disorders - Cancer History Cancer Type, Location and Year: cervical CA first dx May 2012 - Surgical History Surgery Procedure, Year, and Place: Hysterectomy 2012, tubal ligation 2000, appendectomy and cholecystectomy within last ten years, tonsillectomy and adenoidectomy 2003, stents in kidneys 2010, kidneystones lithotripsy 2009 - Immunization History Date of Tetanus Vaccine: Unk Date of Influenza Vaccine: None Infectious Disease History: No Infectious Disease History: Reports: Hx of Known/Suspected MRSA - Left armpit 4- 5 years ago Denies: Hx Hepatitis, Hx Human Immunodeficiency Virus (HIV), History Other Infectious Disease, Traveled Outside the [place] in Last 30 Days - Family History Known Family History: Positive: Cardiac Disease, Hypertension - Social History Alcohol Use: None Hx Substance Use: No Substance Use Type: Reports: None Smoking Status (MU): Heavy Every Day Tobacco Smoker Type: Cigarettes Amount Used/How Often: < 1/2 ppd Length of Time of Smoking/Using Tobacco: 23 years Review of Systems Negative: Fever Negative: Chest Pain Negative: Shortness Of Breath Negative: Nausea Genitourinary: Other - difficulty urinating Positive: flank pain - left All Other Systems Reviewed And Are Negative: Yes Physical Exam - Summary Physical Exam Summary: Appearance: Well appearing, no pain distress. Pt is obese. She is comfortable. Skin: warm, dry, reflects adequate perfusion Head/face: normal Eyes: EOMI, SUDHIR ENT: normal Neck: supple, non-tender Respiratory: CTA, breath sounds present Cardiovascular: RRR, pulses symmetrical Abdomen: non-tender, soft. No CVA tenderness. Bowel: present Musculoskeletal: normal, strength/ROM intact Neuro: normal, sensory motor intact, A&Ox3 Triage Information Reviewed: Yes Vital Signs On Initial Exam: Initial Vitals Temp Pulse Resp BP Pulse Ox 97.7 F 113 14 139/84 99 12/22/17 18:41 12/22/17 18:41 12/22/17 18:41 12/22/17 18:41 12/22/17 18:41 Vital Signs Reviewed: Yes Diagnostics - Vital Signs Vital Signs Temp Pulse Resp BP Pulse Ox 12/22/17 20:40 98.6 F 93 16 125/88 12/22/17 18:41 97.7 F 113 14 139/84 99 - Laboratory Lab Results: Lab Results 12/22/17 12/22/17 12/22/17 Range/Units 20:35 20:35 20:35 WBC 15.5 H (3.5-10.8) 10^3/ul RBC 5.21 (4.0-5.4) 10^6/ul Hgb 14.7 (12.0-16.0) g/dl Hct 44 (35-47) % MCV 85 (80-97) fL MCH 28 (27-31) pg MCHC 33 (31-36) g/dl RDW 15 (10.5-15) % Plt Count 266 (150-450) 10^3/ul MPV 9.7 (7.4-10.4) um3 Neut % (Auto) 75.1 (38-83) % Lymph % (Auto) 17.3 L (25-47) % [place] % (Auto) 6.0 (0-7) % Eos % (Auto) 1.0 (0-6) % Baso % (Auto) 0.6 (0-2) % Absolute Neuts (auto) 11.6 H (1.5-7.7) 10^3/ul Absolute Lymphs (auto) 2.7 (1.0-4.8) 10^3/ul Absolute Monos (auto) 0.9 H (0-0.8) 10^3/ul Absolute Eos (auto) 0.2 (0-0.6) 10^3/ul Absolute Basos (auto) 0.1 (0-0.2) 10^3/ul Absolute Nucleated RBC 0 10^3/ul Nucleated RBC % 0.1 Sodium 138 L (139-145) mmol/L Potassium 4.2 (3.5-5.0) mmol/L Chloride 102 (101-111) mmol/L Carbon Dioxide 30 (22-32) mmol/L Anion Gap 6 (2-11) mmol/L BUN 11 (6-24) mg/dL Creatinine 0.80 (0.51-0.95) mg/dL Est GFR ( Amer) 102.7 (>60) Est GFR (Non-Af Amer) 79.9 (>60) BUN/Creatinine Ratio 13.8 (8-20) Glucose 101 H (70-100) mg/dL Lactic Acid 1.5 (0.5-2.0) mmol/L Calcium 9.6 (8.6-10.3) mg/dL Total Bilirubin 0.30 (0.2-1.0) mg/dL AST 19 (13-39) U/L ALT 30 (7-52) U/L Alkaline Phosphatase 114 H (34-104) U/L C-Reactive Protein 24.87 H (< 5.00) mg/L Total Protein 8.1 (6.4-8.9) g/dL Albumin 4.2 (3.2-5.2) g/dL Globulin 3.9 (2-4) g/dL Albumin/Globulin Ratio 1.1 (1-3) Lipase < 10 L (11.0-82.0) U/L Beta HCG, Quant 1.71 mIU/mL Result Diagrams: 12/22/17 20:35 12/22/17 20:35 Lab Statement: Any lab studies that have been ordered have been reviewed, and results considered in the medical decision making process. - CT Abdomen/pelvis CT CT Interpretation: No Acute Changes - IMPRESSION: THere is no hydronephrosis. There is no ureteral dilatation. There are no renal or ureteral calculi seen. There is borderline hepatosplenomegaly. 2. 5cm low-density left adrenal nodule noted likely adrenal adenoma. The gallbladder is surgically absent. The colon is decompressed. Apparent bowel wall thickening noted throughout the colon is likely related to decompression of the bowel. Less likely mild colitis. There is no evidence of intestinal obstruction. There is a short appendiceal stump as before. Prior appendectomy? There is no right lower quadrant periappendiceal inflammatory change. Urinary bladder is normal in dimension. There are no bladder calculi. There is prior hysterectomy. There are scattered calcifications in the lower pelvic cavity, likely incidental phleboliths. Dr. Montaño has reviewed this radiology report. CT Interpretation Completed By: Radiologist Re-Evaluation - Re-Evaluation First Eval Re-Evaluation Time: 00:32 Change: Improved Comment: Pt is feeling better. She will be discharged home. Abdominal Pain Fem Course/Dx - Course Course Of Treatment: Patient with left upper quadrant pain is felt in the back. History of kidney stones. Urine is clear of blood. CT is negative for hydronephrosis or stone. She is treated for discomfort. Likely gastric in nature. Start GI medications and follow closely primary care physician. - Diagnoses Differential Diagnosis: Positive: Constipation, Diverticulitis, Pancreatitis, Peptic Ulcer Disease, Renal Colic, Urinary Tract Infection Provider Diagnoses: Left upper quadrant pain, Gastritis Discharge - Sign-Out/Discharge Documenting (check all that apply): Discharge/Admit/Transfer - Discharge - Discharge Plan Condition: Good Disposition: HOME Prescriptions: Famotidine TAB* [Pepcid 20 MG TAB*] 20 mg PO BID #20 tab Sucralfate TAB* [Carafate*] 1 gm PO QID #40 tab Patient Education Materials: Gastritis (ED), Acute Abdominal Pain (ED) Referrals: Keith Boone MD [Primary Care Provider] - Additional Instructions: [place] doctor first thing in the morning. Avoid anti-inflammatory medications , alcohol and caffeine. Spicy foods may also aggravate her belly. Return with high fevers, increased pain, worse or other concerns. - Billing Disposition and Condition Condition: GOOD Disposition: HOME The documentation as recorded by the Michael prince Angela accurately reflects the service I personally performed and the decisions made by me, Salbador Montaño MD.
--- NOTE | 2017-12-23 07:30 | RAD ---
INDICATION: Left flank abdominal pain, history of stones. COMPARISON: Comparison is made with prior studies from March 23, 2014 and October 27, 2017. TECHNIQUE: A CT scan of the abdomen and pelvis was performed without intravenous or oral contrast. Contiguous axial sections were obtained from the lung bases through the symphysis pubis. Images were reconstructed in the coronal and sagittal planes. FINDINGS: The lung bases are clear. No pleural effusion is present. The liver and spleen are mildly enlarged without significant focal abnormality on this noncontrast study. The patient is status post cholecystectomy. The pancreas appears to be within normal limits. There is a 2.2 x 1.6 cm hypodense left adrenal lesion measuring -4 Hounsfield units which is unchanged from the recent prior exam and is increased slightly in size from the study from 2013 and most consistent with a benign adenoma. The right adrenal gland appears to be within normal limits. No renal calculi or hydronephrosis is seen no ureteral or bladder calculi are seen. No bladder wall thickening is noted. The aorta is normal in caliber with mild calcific plaque present. No significant enlarged retroperitoneal lymph nodes are seen. There is a small hiatal hernia. The stomach, small and large bowel appear nondistended the patient is status post appendectomy. There is a small residual appendiceal stump. There is no evidence for diverticulitis or colitis. The patient is status post hysterectomy. No free intraperitoneal air or fluid is seen. No significant focal osseous abnormality is seen. IMPRESSION: 1. NO EVIDENCE FOR ACUTE FINDING OR CAUSE FOR THE PATIENT'S ABDOMINAL PAIN IS SEEN. 2. MILD HEPATOSPLENOMEGALY. 3. STATUS POST CHOLECYSTECTOMY AND HYSTERECTOMY. 4. STATUS POST APPENDECTOMY. THERE IS A SMALL RESIDUAL APPENDICEAL STUMP.
== END 2017-12-23 00:45 | disposition home or self-care (01) ==
LOC: ED 18:38
DX: R10.84 Generalized abdominal pain (principal); K29.70 Gastritis, unspecified, without bleeding; Z86.79 Personal history of other diseases of the circulatory system; F17.210 Nicotine dependence, cigarettes, uncomplicated
CPT/HCPCS: 36415; 74176; 80053; 81003; 81015; 83605; 83690; 84702; 85025; 86140; 87086; 96374; 96375; 99284; A9270-GY; J1200; J2270

== ENCOUNTER 2018-02-13 11:52 | Observation (INO) | payer OTHER ==
[2018-02-13 13:15] LABS: ABS Basophils 0.1 10^3/ul (0-0.2); ABS Eosinophils 0.1 10^3/ul (0-0.6); ABS Lymphocytes 2.2 10^3/ul (1.0-4.8); ABS Monocytes 1.4 10^3/ul (0-0.8); ABS Neutrophils 18.3 10^3/ul (1.5-7.7); ABS Nucleated RBC 0 10^3/ul; Eosinophil % 0.5 % (0-6); Hematocrit 44 % (35-47); Hemoglobin 14.9 g/dl (12.0-16.0); Mean Corpuscular HGB Conc 34 g/dl (31-36); Mean Corpuscular Hemoglobin 28 pg (27-31); Mean Corpuscular Volume 83 fL (80-97); Mean Platelet Volume 9.9 um3 (7.4-10.4); Nucleated Red Blood Cells % 0; Platelet Count 243 10^3/ul (150-450); Red Blood Count 5.32 10^6/ul (4.00-5.40); Red Cell Distribution Width 15 % (10.5-15)
[2018-02-13 13:24] LABS: INR 1.02 (0.77-1.02)
[2018-02-13 13:33] LABS: EGFR Non-African American 91.6 (>60)
--- NOTE | 2018-02-13 14:09 | RAD ---
CLINICAL HISTORY: diffuse pain COMPARISON: December 22, 2017 TECHNIQUE: Multiple contiguous axial CT scans were obtained of the abdomen and pelvis, without intravenous contrast enhancement. Coronal and sagittal multiplanar reformations are submitted for review. Oral contrast was not administered. FINDINGS: The study is limited by the lack of intravenous contrast. This limits evaluation of the solid organs and vasculature. LUNG BASES: The lung bases are clear. LIVER: The liver is normal in shape, size, contour, and attenuation. BILE DUCTS: There is no intrahepatic or extrahepatic biliary dilatation. GALLBLADDER: The gallbladder is not visualized. Surgical clips are noted in the gallbladder fossa. PANCREAS: The pancreas is normal, without mass or ductal dilatation. SPLEEN: Normal in size and appearance. UPPER GI TRACT: Evaluation of the gastrointestinal tract is limited by incomplete gastric distention. The upper GI tract is unremarkable. SMALL BOWEL AND MESENTERY: The small bowel is normal in contour, course, and caliber. There is no obstruction or dilatation. COLON: There is stranding of the pericolonic fat along the descending and sigmoid colon without appreciable diverticulosis. ADRENALS: There is a stable left adrenal nodule measuring less than 10 Hounsfield units consistent with an adenoma. KIDNEYS: The kidneys are normal in shape, size, contour, and axis. There is no hydronephrosis or nephrolithiasis. BLADDER: The bladder is collapsed and is not well evaluated. PELVIC ORGANS: The pelvic organs are not visualized. AORTA: There is mild calcific atherosclerotic disease of the abdominal aorta and its branches, without aneurysmal dilatation IVC: Unremarkable LYMPH NODES: There is no lymphadenopathy by size criteria. ABDOMINAL WALL: There is no evidence for abdominal wall hernia. BONES AND SOFT TISSUES: There are mild diffuse degenerative changes. OTHER: None IMPRESSION: THERE IS INFLAMMATORY CHANGE ALONG THE DESCENDING AND SIGMOID COLON WITHOUT APPRECIABLE DIVERTICULOSIS. THE APPEARANCE IS SUGGESTIVE OF COLITIS IN THE CORRECT CLINICAL SETTING
[2018-02-13] MEDS ORDERED: NS 0.9% 1000 ML* 1,000 ML IV ONE (14:42)
[2018-02-13] MEDS ORDERED: PROCHLORPERAZINE INJ 5 MG/ML 2 ML VIAL IV PRN (15:55)
[2018-02-13] MEDS ORDERED: Acetaminophen TAB* 325 MG PO PRN (15:55)
[2018-02-13] MEDS ORDERED: Morphine VIAL* 4 MG/ML VIAL (1 ml vial) IV PRN (15:55)
[2018-02-13] MEDS: Carisoprodol TAB* 350 MG PO PRN (16:11)
--- NOTE | 2018-02-13 17:05 | ED ---
Michael Albrecht Angela, scribed for Ajay Miguel MD on 02/13/18 at 1253 . GI/ HPI - HPI Summary HPI Summary: This pt is a 37 y/o female presenting to [facility] c/o rectal bleeding since last night. Pt reports she has passed blood approximately 30 times. She states there is no stool with rectal bleeding. Associated symptoms include generalized weakness, abdominal cramping and right sided back pain. PMHx includes appendectomy, cholecystectomy, hysterectomy. Pt is currently on omeprazole. - History of Current Complaint Chief Complaint: EDGIBleed Time Seen by Provider: 02/13/18 12:34 Stated Complaint: RECTAL/VAGINAL BLEEDING Hx Obtained From: Patient Hx Last Menstrual Period: 08/25/12 Onset/Duration: Started Hours Ago, Still Present Timing: Lasting Hours Current Severity: Severe Pain Intensity: 9 Location of Pain: Diffuse Associated Signs and Symptoms: Positive: Back Pain, Weakness - generalized, Abdominal Pain, Other: - rectal bleeding - Allergy/Home Medications Allergies/Adverse Reactions: Allergies Allergy/AdvReac Type Severity Reaction Status Date / Time ketorolac [From Toradol] Allergy Swelling Verified 02/13/18 12:02 Of Face,Lips,& Throat PMH/Surg Hx/FS Hx/Imm Hx Endocrine/Hematology History: Denies: Hx Anticoagulant Therapy, Hx Diabetes, Hx Thyroid Disease, Other Endocrine/Hematological Disorders Cardiovascular History: Reports: Hx Hypertension Denies: Hx Congestive Heart Failure, Hx Coronary Artery Disease, Hx Pacemaker /ICD, Other Cardiovascular Problems/Disorders Respiratory History: Denies: Hx Asthma, Hx Chronic Obstructive Pulmonary Disease (COPD), Other Respiratory Problems/Disorders GI History: Reports: Hx Gall Bladder Disease, Other GI Disorders - appendectomy , rashi History: Reports: Hx Kidney Stones, Hx Renal Disease - Hx Kidney Stones, Other Problems/Disorders - hx of kidney stones - lithotripsy w/ stents Musculoskeletal History: Reports: Hx Arthritis, Hx Back Problems, Hx Fibromyalgia Denies: Other Musculoskeletal History Sensory History: Reports: Hx Contacts or Glasses Denies: Other Sensory Impairments Opthamlomology History: Reports: Hx Contacts or Glasses Denies: Other Sensory Impairments Neurological History: Reports: Hx Seizures, Other Neuro Impairments/Disorders - fibromyalgia Denies: Hx Dementia Psychiatric History: Reports: Hx Anxiety, Hx Depression Denies: Hx Substance Abuse, Other Psychiatric Issues/Disorders - Cancer History Cancer Type, Location and Year: cervical CA first dx May 2012 - Surgical History Surgery Procedure, Year, and Place: Hysterectomy 2012, tubal ligation 2000, appendectomy and cholecystectomy within last ten years, tonsillectomy and adenoidectomy 2003, stents in kidneys 2010, kidneystones lithotripsy 2009 - Immunization History Date of Tetanus Vaccine: Unk Date of Influenza Vaccine: None Infectious Disease History: No Infectious Disease History: Reports: Hx of Known/Suspected MRSA - Left armpit 4- 5 years ago Denies: Hx Hepatitis, Hx Human Immunodeficiency Virus (HIV), History Other Infectious Disease, Traveled Outside the [place] in Last 30 Days - Family History Known Family History: Positive: Cardiac Disease, Hypertension - Social History Alcohol Use: None Hx Substance Use: No Substance Use Type: Reports: None Smoking Status (MU): Heavy Every Day Tobacco Smoker Type: Cigarettes Amount Used/How Often: < 1/2 ppd Length of Time of Smoking/Using Tobacco: 23 years Review of Systems Negative: Fever, Chills Gastrointestinal: Other - POS: rectal bleeding Positive: Abdominal Pain Musculoskeletal: Other - POS: right sided back pain Positive: Weakness - generalized All Other Systems Reviewed And Are Negative: Yes Physical Exam - Summary Physical Exam Summary: Appearance: The patient is obese. Skin: The skin is warm and dry and skin color reflects adequate perfusion. HEENT: The head is normocephalic and atraumatic. The pupils are equal and reactive. The conjunctivae are pink and without drainage. Nares are patent and without drainage. Mouth reveals moist mucous membranes and the throat is without erythema and exudate. The external ears are intact. The ear canals are patent and without drainage. The tympanic membranes are intact. Neck: the neck is supple with full range of motion and non-tender. There are no carotid bruits. There is no neck vein distension. Respiratory: Chest is non-tender. Lungs are clear to auscultation and breath sounds are symmetrical and equal. Cardiovascular: Heart is tachycardic with regular rhythm. There is no murmur or rub auscultated. There is no peripheral edema and pulses are symmetrical and equal. Abdomen: The abdomen is soft. Pt is diffusely tender. There are normal bowel sounds heard in all four quadrants and there is no organomegaly palpated. Musculoskeletal: There is no back tenderness noted. Extremities are non-tender with full range of motion. There is good capillary refill. There is no peripheral edema or calf tenderness elicited. Neurological: Patient is alert and oriented to person, place and time. Psychiatric: The patient has an appropriate affect and does not exhibit any anxiety or depression. Triage Information Reviewed: Yes Vital Signs On Initial Exam: Initial Vitals Temp Pulse Resp BP Pulse Ox 98.0 F 125 14 113/69 95 02/13/18 12:01 02/13/18 12:01 02/13/18 12:01 02/13/18 12:01 02/13/18 12:01 Vital Signs Reviewed: Yes Diagnostics - Vital Signs Vital Signs Temp Pulse Resp BP Pulse Ox 02/13/18 12:01 98.0 F 125 14 113/69 95 - Laboratory Lab Results: Lab Results 02/13/18 02/13/18 02/13/18 Range/Units 13:07 13:07 13:07 WBC 22.0 H (3.5-10.8) 10^3/ul RBC 5.32 (4.00-5.40) 10^6/ul Hgb 14.9 (12.0-16.0) g/dl Hct 44 (35-47) % MCV 83 (80-97) fL MCH 28 (27-31) pg MCHC 34 (31-36) g/dl RDW 15 (10.5-15) % Plt Count 243 (150-450) 10^3/ul MPV 9.9 (7.4-10.4) um3 Neut % (Auto) 82.8 (38-83) % Lymph % (Auto) 10.0 L (25-47) % [place] % (Auto) 6.2 (0-7) % Eos % (Auto) 0.5 (0-6) % Baso % (Auto) 0.5 (0-2) % Absolute Neuts (auto) 18.3 H (1.5-7.7) 10^3/ul Absolute Lymphs (auto) 2.2 (1.0-4.8) 10^3/ul Absolute Monos (auto) 1.4 H (0-0.8) 10^3/ul Absolute Eos (auto) 0.1 (0-0.6) 10^3/ul Absolute Basos (auto) 0.1 (0-0.2) 10^3/ul Absolute Nucleated RBC 0 10^3/ul Nucleated RBC % 0 INR (Anticoag Therapy) 1.02 (0.77-1.02) APTT 29.6 (26.0-36.3) seconds Sodium 138 (135-145) mmol/L Potassium 3.5 (3.5-5.0) mmol/L Chloride 101 (101-111) mmol/L Carbon Dioxide 29 (22-32) mmol/L Anion Gap 8 (2-11) mmol/L BUN 8 (6-24) mg/dL Creatinine 0.71 (0.51-0.95) mg/dL Est GFR ( Amer) 110.9 (>60) Est GFR (Non-Af Amer) 91.6 (>60) BUN/Creatinine Ratio 11.3 (8-20) Glucose 116 H (70-100) mg/dL Calcium 9.4 (8.6-10.3) mg/dL Total Bilirubin 0.40 (0.2-1.0) mg/dL AST 13 (13-39) U/L ALT 19 (7-52) U/L Alkaline Phosphatase 97 (34-104) U/L Total Protein 7.6 (6.4-8.9) g/dL Albumin 3.9 (3.2-5.2) g/dL Globulin 3.7 (2-4) g/dL Albumin/Globulin Ratio 1.1 (1-3) Blood Type Antibody Screen 02/13/18 Range/Units 13:07 WBC (3.5-10.8) 10^3/ul RBC (4.00-5.40) 10^6/ul Hgb (12.0-16.0) g/dl Hct (35-47) % MCV (80-97) fL MCH (27-31) pg MCHC (31-36) g/dl RDW (10.5-15) % Plt Count (150-450) 10^3/ul MPV (7.4-10.4) um3 Neut % (Auto) (38-83) % Lymph % (Auto) (25-47) % [place] % (Auto) (0-7) % Eos % (Auto) (0-6) % Baso % (Auto) (0-2) % Absolute Neuts (auto) (1.5-7.7) 10^3/ul Absolute Lymphs (auto) (1.0-4.8) 10^3/ul Absolute Monos (auto) (0-0.8) 10^3/ul Absolute Eos (auto) (0-0.6) 10^3/ul Absolute Basos (auto) (0-0.2) 10^3/ul Absolute Nucleated RBC 10^3/ul Nucleated RBC % INR (Anticoag Therapy) (0.77-1.02) APTT (26.0-36.3) seconds Sodium (135-145) mmol/L Potassium (3.5-5.0) mmol/L Chloride (101-111) mmol/L Carbon Dioxide (22-32) mmol/L Anion Gap (2-11) mmol/L BUN (6-24) mg/dL Creatinine (0.51-0.95) mg/dL Est GFR ( Amer) (>60) Est GFR (Non-Af Amer) (>60) BUN/Creatinine Ratio (8-20) Glucose (70-100) mg/dL Calcium (8.6-10.3) mg/dL Total Bilirubin (0.2-1.0) mg/dL AST (13-39) U/L ALT (7-52) U/L Alkaline Phosphatase (34-104) U/L Total Protein (6.4-8.9) g/dL Albumin (3.2-5.2) g/dL Globulin (2-4) g/dL Albumin/Globulin Ratio (1-3) Blood Type B Positive Antibody Screen Negative Result Diagrams: 02/13/18 13:07 02/13/18 13:07 Lab Statement: Any lab studies that have been ordered have been reviewed, and results considered in the medical decision making process. - CT Abdomen/Pelvis CT CT Interpretation: Positive (See Comments) - IMPRESSION: There is inflammatory change along the descending and sigmoid colon without appreciable diverticulosis. The appearance is suggestive of colitis in the correct clinical setting. Dr. Miguel has reviewed this radiology report. CT Interpretation Completed By: Radiologist Re-Evaluation - Re-Evaluation First Eval Re-Evaluation Time: 14:35 Comment: I reviewed the CT results with the pt. GIGU Course/Dx - Course Course Of Treatment: Ms. Bermudez presented with the concern for having multiple episodes of bloody liquid stool over the course of the night. She also complains of crampy abdominal pain. She was very tender to examination of her abdomen and her labs revealed a leukocytosis of 22,000. A CT scan was obtained which showed a colitis. Dr. Hurley was contacted and was concerned for ischemic bowel and recommended admission. The hospitalist service is admitting her. In the ED she got IV fluids. - Diagnoses Provider Diagnoses: Colitis - Physician Notifications Discussed Care Of Patient With: Ernesto Hurley Time Discussed With Above Provider: 14:41 Instructed by Provider To: Other - I discussed pt care with Dr. Hurley, GI. [15 :08] I discussed with Dr. Nava, hospitalist, who accepted the pt for admission. Discharge - Sign-Out/Discharge Documenting (check all that apply): Discharge/Admit/Transfer - Admit - Discharge Plan Condition: Stable Disposition: ADMITTED TO [facility] - Billing Disposition and Condition Condition: STABLE Disposition: Admitted to [facility] The documentation as recorded by the Michael prince Angela accurately reflects the service I personally performed and the decisions made by me, Ajay Miguel MD.
[2018-02-13] MEDS: metroNIDAZOLE IV 500 MG/100ML* 500 MG/100 ML BAG IVPB SCH (17:57)
[2018-02-13] MEDS: HYDROcodone/ACETAMIN 5-325 MG* 1 TAB PO PRN (19:28)
[2018-02-13] MEDS: Lacosamide TAB* 100 MG TAB PO SCH (20:44)
[2018-02-13] MEDS: Amitriptyline TAB* 50 MG PO SCH (20:44)
[2018-02-13] MEDS: Ciprofloxacin 400MG IVPREMIX(* 400 MG/200 ML BAG IVPB SCH (20:45)
[2018-02-13] MEDS: Omeprazole CAP* 20 MG PO SCH (21:56)
[2018-02-13] MEDS: Citalopram TAB* 40 MG PO SCH (21:56)
--- NOTE | 2018-02-13 22:32 | HP ---
CC: Daisy Galan NP * HISTORY AND PHYSICAL: DATE OF ADMISSION: 02/13/18 TIME OF EVALUATION: 3:30 p.m. PRIMARY CARE PROVIDER: Daisy Galan NP CHIEF COMPLAINT: "I have blood in the stool." HISTORY OF PRESENT ILLNESS: Ms. Bermudez is a 37-year-old lady with a past medical history of morbid obesity, anxiety, depression, fibromyalgia, seizure disorder, tobacco abuse, who presents to the emergency room with complaints of abdominal pain. She states she was in her usual state of health yesterday. She spent a day at [employer] with her kids. She denies eating any different food. Last night, she started to have crampy diffuse abdominal pain and this was followed by a liquid bowel movement that she describes as "pure blood." She describes that overnight, she had more than 30 bowel movements all liquid and all with blood. She denies fever, chills, nausea, vomiting, and no sick contacts. As her symptoms persisted, the patient presented to the emergency room for evaluation. She did bring a stool sample in a Styrofoam cup, but the one she shows me, it does not look like blood, it looks like brown liquid stool. PAST MEDICAL HISTORY: 1. Depression. 2. Anxiety. 3. Fibromyalgia. 4. Morbid obesity with a BMI of 44. 5. Tobacco abuse. 6. Seizure disorder. PAST SURGICAL HISTORY: 1. Status post cholecystectomy. 2. Status post tonsillectomy. 3. Status post bilateral tubal ligation. 4. Status post appendectomy. MEDICATION LIST: 1. Amitriptyline 125 mg p.o. at bedtime. 2. Carisoprodol 350 mg p.o. t.i.d. as needed for pain. 3. Lexapro 20 mg p.o. daily. 4. [place] 5/325 mg 1 tablet p.o. q.6 hours p.r.n. pain. 5. Lacosamide 100 mg p.o. b.i.d. 6. Lisinopril/hydrochlorothiazide 20/12.5. 7. Omeprazole 40 mg p.o. daily. ALLERGIES: No known drug allergies. FAMILY HISTORY: Reviewed and her mother has a history of heart disease. SOCIAL HISTORY: The patient is a smoker, half a pack a day. She denies alcohol or drug use. Surrogate decision maker is her mother, Hiwot Franks, phone number is [phone]. REVIEW OF SYSTEMS: A 14-point review of systems was performed and all the pertinent negative and positive findings are in the HPI. PHYSICAL EXAMINATION GENERAL: The patient is an obese lady, lying in the ED stretcher, not in acute distress. VITAL SIGNS: Temperature 98.0, heart rate 125, respiratory rate is 18, oxygen saturation 95% on room air, blood pressure is 111/76. HEENT: Pupils are equal. Moist mucous membranes. CHEST: Breath sounds present bilaterally with no added sounds. CVS: Normal S1, S2. Regular rate and rhythm. ABDOMEN: Obese with mild diffuse tenderness. No guarding. No rebound. Bowel sounds are present. EXTREMITIES: No edema. NEURO: She is alert, awake, and oriented x3. Able to move all 4 extremities. LABORATORY AND IMAGING DATA: The patient had a CBC that showed WBC of 22,000 with a hemoglobin of 14.9, hematocrit of 44, platelets of 243. INR is 1.02. Chemistry showed a sodium of 138, potassium of 3.5, chloride of 101, bicarb of 29, BUN of 8, creatinine of 0.7, glucose of 116, calcium of 9.4. LFTs are normal. CT of the abdomen and pelvis without contrast that showed inflammatory change along the descending and sigmoid colon without appreciable diverticulosis. The appearance is suggestive of colitis. ASSESSMENT AND PLAN: Ms. Bermudez is a 37-year-old lady with a past medical history of anxiety, depression, fibromyalgia, tobacco abuse, morbid obesity, who presented to the emergency room with complaints of crampy abdominal pain and bloody bowel movements. 1. Sepsis. The patient's presentation is compatible with sepsis with tachycardia and leukocytosis. Source is colitis. 2. Colitis. I suspect infectious etiology at this time. The patient denies eating any different food or sick contacts at this point. I am going to check stool culture and I will start her on ciprofloxacin and Flagyl empirically. GI consult was requested with Dr. Hurley and plan is for a flex sigmoidoscopy tomorrow. Although she states that she had more than 30 bloody bowel movements overnight, her H and H are 14.9/44. We are going to monitor her H and H, but the stool sample that she showed me in the emergency room was liquid brown stool with no sign of red blood. Diverticular bleed is unlikely as the patient has crampy abdominal pain. Ischemic colitis is a possibility because the patient is young, she is a smoker. She will be on a clear liquid diet. She will receive IV hydration and pain management. 3. Depression/anxiety/fibromyalgia. We will continue amitriptyline, carisoprodol, and hydrocodone. 4. Seizure disorder. We will continue lacosamide. 5. DVT prophylaxis: The patient has a score of 1 on the DVT Prophylaxis Risk Assessment Guide and pharmacological prophylaxis is contraindicated in the setting of lower GI bleed. The patient will have SCDs. 6. Code status is full. TIME SPENT: Approximately 45 minutes were spent with the patient's interview, medical records review, physical examination to complete this admission, more than half of this time was spent [id number] with the patient in coordination of care. [id number]/[facility] #: [id number] HEATHER
[2018-02-13 22:41] LABS: Hematocrit 41 % (35-47); Hemoglobin 13.6 g/dl (12.0-16.0)
[2018-02-14] MEDS: HYDROcodone/ACETAMIN 5-325 MG* 1 TAB PO PRN ×4 (01:36→21:39)
[2018-02-14] MEDS: metroNIDAZOLE IV 500 MG/100ML* 500 MG/100 ML BAG IVPB SCH (01:37)
[2018-02-14 05:44] LABS: Hematocrit 41 % (35-47); Hemoglobin 13.4 g/dl (12.0-16.0)
[2018-02-14 05:46] LABS: ABS Basophils 0 10^3/ul (0-0.2); ABS Eosinophils 0.2 10^3/ul (0-0.6); ABS Lymphocytes 3.6 10^3/ul (1.0-4.8); ABS Monocytes 1.1 10^3/ul (0-0.8); ABS Neutrophils 10.2 10^3/ul (1.5-7.7); ABS Nucleated RBC 0 10^3/ul; Hematocrit 40 % (35-47); Hemoglobin 13.4 g/dl (12.0-16.0); Lymphocyte % 23.5 % (25-47); Mean Corpuscular HGB Conc 33 g/dl (31-36); Mean Corpuscular Hemoglobin 28 pg (27-31); Mean Corpuscular Volume 84 fL (80-97); Mean Platelet Volume 9.9 um3 (7.4-10.4); Nucleated Red Blood Cells % 0.1; Platelet Count 197 10^3/ul (150-450); Red Cell Distribution Width 15 % (10.5-15); White Blood Count 15.1 10^3/ul (3.5-10.8)
[2018-02-14 06:03] LABS: EGFR Non-African American 94.7 (>60)
[2018-02-14] MEDS: Ciprofloxacin 400MG IVPREMIX(* 400 MG/200 ML BAG IVPB SCH (06:22)
--- NOTE | 2018-02-14 08:33 | PN ---
Subjective Date of Service: 02/14/18 Interval History: Pt states she had 4 BM's which were "straight blood." Nurse reported one bloody mucous-consistency BM, small amount. Still has some abd pain. Objective Active Medications: Acetaminophen (Tylenol Tab*) 650 mg PO Q6H PRN PRN Reason: pain/fever Hydrocodone Bitart/Acetaminophen ([place] 5-325 Tab*) 1 tab PO Q6H PRN PRN Reason: PAIN Last Admin: 02/14/18 01:36 Dose: 1 tab Amitriptyline HCl (Elavil Tab*) 125 mg PO BEDTIME [facility] Last Admin: 02/13/18 20:44 Dose: 125 mg Carisoprodol (Soma Tab*) 350 mg PO TID PRN PRN Reason: PAIN Last Admin: 02/13/18 16:11 Dose: 350 mg Citalopram Hydrobromide (Celexa Tab*) 40 mg PO 2100 [facility] Last Admin: 02/13/18 21:56 Dose: 40 mg Lacosamide (Vimpat Tab*) 100 mg PO BID [facility] Last Admin: 02/13/18 20:44 Dose: 100 mg Lisinopril (Prinivil Tab*) 20 mg PO DAILY [facility] Morphine Sulfate (Morphine Vial*) 2 mg IV Q4H PRN PRN Reason: PAIN Last Admin: 02/13/18 16:11 Dose: 2 mg Omeprazole (Prilosec Cap*) 40 mg PO 2100 [facility] Last Admin: 02/13/18 21:56 Dose: 40 mg Prochlorperazine Edisylate (Compazine Inj*) 5 mg IV Q6H PRN PRN Reason: NAUSEA/VOMITING Last Admin: 02/13/18 19:28 Dose: 5 mg Vital Signs - 8 hr 02/14/18 02/14/18 02/14/18 01:36 03:36 04:07 Temperature 98.6 F Pulse Rate 97 Respiratory 17 16 16 Rate Blood Pressure 111/64 (mmHg) O2 Sat by Pulse 95 Oximetry Oxygen Devices in Use Now: None Appearance: Alert, on her R side in bed. In fair spirits. Looks comfortable. Eyes: No Scleral Icterus Abdominal: - - Very obese. Soft, mild diffuse [id number] without rebound. Nl BS. Extremities: No Edema, No Clubbing, Cyanosis, - Skin: No Rash or Ulcers, No Nodules or Sclerosis, - Neurological: Alert and Oriented x 3, NL Sensation Result Diagrams: 02/14/18 05:17 02/14/18 05:17 Additional Lab and Data: Lab Results 02/13/18 02/13/18 02/13/18 Range/Units 13:07 13:07 13:07 WBC 22.0 H (3.5-10.8) 10^3/ul RBC 5.32 (4.00-5.40) 10^6/ul Hgb 14.9 (12.0-16.0) g/dl Hct 44 (35-47) % MCV 83 (80-97) fL MCH 28 (27-31) pg MCHC 34 (31-36) g/dl RDW 15 (10.5-15) % Plt Count 243 (150-450) 10^3/ul MPV 9.9 (7.4-10.4) um3 Neut % (Auto) 82.8 (38-83) % Lymph % (Auto) 10.0 L (25-47) % [place] % (Auto) 6.2 (0-7) % Eos % (Auto) 0.5 (0-6) % Baso % (Auto) 0.5 (0-2) % Absolute Neuts (auto) 18.3 H (1.5-7.7) 10^3/ul Absolute Lymphs (auto) 2.2 (1.0-4.8) 10^3/ul Absolute Monos (auto) 1.4 H (0-0.8) 10^3/ul Absolute Eos (auto) 0.1 (0-0.6) 10^3/ul Absolute Basos (auto) 0.1 (0-0.2) 10^3/ul Absolute Nucleated RBC 0 10^3/ul Nucleated RBC % 0 INR (Anticoag Therapy) 1.02 (0.77-1.02) APTT 29.6 (26.0-36.3) seconds Sodium 138 (135-145) mmol/L Potassium 3.5 (3.5-5.0) mmol/L Chloride 101 (101-111) mmol/L Carbon Dioxide 29 (22-32) mmol/L Anion Gap 8 (2-11) mmol/L BUN 8 (6-24) mg/dL Creatinine 0.71 (0.51-0.95) mg/dL Est GFR ( Amer) 110.9 (>60) Est GFR (Non-Af Amer) 91.6 (>60) BUN/Creatinine Ratio 11.3 (8-20) Glucose 116 H (70-100) mg/dL Calcium 9.4 (8.6-10.3) mg/dL Total Bilirubin 0.40 (0.2-1.0) mg/dL AST 13 (13-39) U/L ALT 19 (7-52) U/L Alkaline Phosphatase 97 (34-104) U/L Total Protein 7.6 (6.4-8.9) g/dL Albumin 3.9 (3.2-5.2) g/dL Globulin 3.7 (2-4) g/dL Albumin/Globulin Ratio 1.1 (1-3) Blood Type Antibody Screen 02/13/18 Range/Units 13:07 WBC (3.5-10.8) 10^3/ul RBC (4.00-5.40) 10^6/ul Hgb (12.0-16.0) g/dl Hct (35-47) % MCV (80-97) fL MCH (27-31) pg MCHC (31-36) g/dl RDW (10.5-15) % Plt Count (150-450) 10^3/ul MPV (7.4-10.4) um3 Neut % (Auto) (38-83) % Lymph % (Auto) (25-47) % [place] % (Auto) (0-7) % Eos % (Auto) (0-6) % Baso % (Auto) (0-2) % Absolute Neuts (auto) (1.5-7.7) 10^3/ul Absolute Lymphs (auto) (1.0-4.8) 10^3/ul Absolute Monos (auto) (0-0.8) 10^3/ul Absolute Eos (auto) (0-0.6) 10^3/ul Absolute Basos (auto) (0-0.2) 10^3/ul Absolute Nucleated RBC 10^3/ul Nucleated RBC % INR (Anticoag Therapy) (0.77-1.02) APTT (26.0-36.3) seconds Sodium (135-145) mmol/L Potassium (3.5-5.0) mmol/L Chloride (101-111) mmol/L Carbon Dioxide (22-32) mmol/L Anion Gap (2-11) mmol/L BUN (6-24) mg/dL Creatinine (0.51-0.95) mg/dL Est GFR ( Amer) (>60) Est GFR (Non-Af Amer) (>60) BUN/Creatinine Ratio (8-20) Glucose (70-100) mg/dL Calcium (8.6-10.3) mg/dL Total Bilirubin (0.2-1.0) mg/dL AST (13-39) U/L ALT (7-52) U/L Alkaline Phosphatase (34-104) U/L Total Protein (6.4-8.9) g/dL Albumin (3.2-5.2) g/dL Globulin (2-4) g/dL Albumin/Globulin Ratio (1-3) Blood Type B Positive Antibody Screen Negative Microbiology and Other Data: Microbiology 02/14/18 01:40 Stool Gross Appearance - Final Stool Assess/Plan/Problems-Billing Assessment: - Patient Problems (1) Diarrhea Current Visit: Yes Status: Acute Code(s): R19.7 - DIARRHEA, UNSPECIFIED SNOMED Code(s): 78959340 Comment: Flex sig showed ischemic colitis. Lipid profile, CBC in AM. Advance to full liquids. Outpt hypercoag w/up in PCP office. (2) Morbid obesity Current Visit: Yes Status: Acute Code(s): E66.01 - MORBID (SEVERE) OBESITY DUE TO EXCESS CALORIES SNOMED Code(s): 572886475 Comment: BMI 43.9. (3) HTN (hypertension) Current Visit: Yes Status: Acute Code(s): I10 - ESSENTIAL (PRIMARY) HYPERTENSION SNOMED Code(s): 00055257 Comment: Continue lisinopril, hold thiazide. (4) Fibromyalgia Current Visit: Yes Status: Acute Code(s): M79.7 - FIBROMYALGIA SNOMED Code (s): 414234836 Comment: Continue carisoprodol, amitriptyline, HC/APA.
[2018-02-14] MEDS ORDERED: Lisinopril/HCTZ 20/12.5(NF) TAB PO SCH (09:00)
[2018-02-14] MEDS ORDERED: Hydrochlorothiazide TAB* 25 MG PO SCH (09:00)
[2018-02-14] MEDS ORDERED: Lisinopril TAB* 10 MG PO SCH (09:00)
[2018-02-14] MEDS: Lacosamide TAB* 100 MG TAB PO SCH ×2 (09:43→21:40)
[2018-02-14] MEDS: Lisinopril TAB* 10 MG PO SCH (09:43)
[2018-02-14] MEDS ORDERED: fentaNYL* 50 MCG/ML 2 ML VIAL (100 MCG VIAL) ONE (13:18)
[2018-02-14] MEDS ORDERED: Midazolam* 1 MG/ML 10 ML VIAL (10 MG) ONE (13:18)
--- NOTE | 2018-02-14 15:01 | CONS ---
Gastroenterology Consult DATE: 02/14/18 REFERRING PHYSICIAN: Keith Whitlock. REASON FOR CONSULT: Abdominal crampy pain and bloody stools with white count 22 ,000. HISTORY OF PRESENT ILLNESS: This chronically ill 37-year-old woman states her usual bowel pattern is daily, firm and without the need for laxatives. She has not had to see any specialists for gastrointestinal concerns for many years. She is followed by VELMA Garcia, at the [facility] as monthly visits for her home medications, which include hydrocodone, Soma, Elavil, and lacosamide. She states she was feeling well on Tuesday morning, 02/12/18. In the mid afternoon while at [facility], she suddenly developed abdominal cramps and felt urgency, but could not have a bowel movement. She went home and had a couple of formed stools. Around midnight, she saw blood and had repetitive passages of blood. She came to the emergency room in the AM and was afebrile reporting blood passages. With hemoglobin 14.9 and white count 22. CRP was 63.7 (the next day). Stool culture was sent. Frequency of loose mucoid passage has diminished. She had 1 about 4 hours ago that she says it was like "strawberry jam." She states she has never had anything like this before. Her stools are normally firm. She does recall a colonoscopy 10 years ago (Dr Cabral in 2007) and it was normal, but she does not recall who sent her or why. PAST MEDICAL HISTORY: 1. Morbid obesity. 2. Chronic pain - followed in the pain clinic 3. Status post hysterectomy with oophorectomy in 2012 in [facility] by Dr. Laird. 4. Appendectomy. 5. Cholecystectomy [place] [address] Castaneda. 6. Tonsillectomy in 2003. 7. Renal stones with stents and lithotripsy in 2009. MEDICATIONS: In addition to hydrocodone, Soma, and lacosamide, she takes: Omeprazole 40 mg. Zestoretic 27/07.5. Amitriptyline 125 mg h.s. SOCIAL HISTORY: She is and lives with her and mother and children ages 5 and 6. She has a 17-year-old who sometimes comes with them. She said her has brain cancer, diagnosed 15 years ago, still in place and seizures are being controlled and he is able to be a rear load truck driver. She smokes half a pack a day. She says her weight fluctuates between 220 and 240 and it was 243 at her last appointment with VELMA Garcia. REVIEW OF SYSTEMS: No history of migraines, current seizures, syncope, heart attack, chest pain, hemoptysis, TB, or diarrhea. Her visit history shows 5 pages since 2000 with over [address] chest abd pel in 2012 showed thickened left colon though her CRP was normla then PHYSICAL EXAM: She is a chronically ill-appearing morbidly obese woman, slightly hirsute, sitting in the chair. HEENT exam shows no icterus. She she has no adenopathy. She has numerous tattoos. Her lungs are clear. Heart sounds are regular. Breasts and pelvic exams are deferred. The abdomen has wide-spread tenderness, more infraumbilical. There is no rigidity. Bowel sounds are present. Rectal deferred to an upcoming sigmoidoscopy. Extremities show numerous tattoos with no joint deformity. DIAGNOSTIC STUDIES/LAB DATA: Stool culture is pending. Her labs today show white count 15.1, hemoglobin 15.4, hematocrit 40, MCV 84. Creatinine 0.69, BUN 8. LFTs normal. AST 13, ALT 19, bilirubin 0.4, albumin 3.9. Prior labs show TSH 2.23 in August 2017. B12 342 in June 2011 and she has multiple drug levels ordered in May 2017 from the pain clinic, where she is followed by Lyric Antoine NP. Her WBC tends to run high CT scan - thickening of the descending colon. IMPRESSION: This 37-year-old woman presents with abrupt abdominal pain and bloody passages with no fever though an elevated white count and no fall in hemoglobin to any significant degree. This would be consistent with ischemic colitis, less likely bleeding from diverticulitis (no fever) and an unprepped sigmoidoscopy is planned. Although she is chronically ill and is a smoker, she has not had any prior documented vascular disease or clots and has not had another recent illness that might have spurred a thrombophilic situation. An enteric infection seems less likely given the abrupt onset, lack of fever, and generalized malaise. [id number]/[facility] #: [id number] [facility]
[2018-02-14] MEDS: Carisoprodol TAB* 350 MG PO PRN ×2 (15:02→21:44)
[2018-02-14 18:01] LABS: Hematocrit 42 % (35-47); Hemoglobin 13.5 g/dl (12.0-16.0)
[2018-02-14] MEDS: Citalopram TAB* 40 MG PO SCH (21:40)
[2018-02-14] MEDS: Omeprazole CAP* 20 MG PO SCH (21:45)
[2018-02-14] MEDS: Amitriptyline TAB* 50 MG PO SCH (21:50)
[2018-02-15 07:47] VITALS: BP 117/85
[2018-02-15] MEDS: Carisoprodol TAB* 350 MG PO PRN (07:58)
[2018-02-15] MEDS: HYDROcodone/ACETAMIN 5-325 MG* 1 TAB PO PRN (07:58)
[2018-02-15] MEDS: Lisinopril TAB* 10 MG PO SCH (09:43)
[2018-02-15] MEDS: Lacosamide TAB* 100 MG TAB PO SCH (09:43)
[2018-02-15] MEDS ORDERED: oxyCODONE TAB* 5 MG TAB PO PRN (10:54)
--- NOTE | 2018-02-15 11:35 | PN ---
Progress Note - Progress Note Date of Service: 02/15/18 Note: Additional diagnoses: 1. Tobacco use disorder (smoking cessatin discussed with pt and her .) 2. Seizure disorder (sees a [facility] neurologist).
--- NOTE | 2018-02-15 13:35 | PN ---
"Progress Note - Progress Note Date of Service: 02/15/18 Note: This report was requested by: Abdulkadir Hall | Reference #: [id number] Others' Prescriptions Patient Name: Toshia Bermudez Date: 1980 Address: [place] [address] Sex: Female Rx Written Rx Dispensed Drug Quantity Days Supply Prescriber Name 02/13/2018 02/14/2018 hydrocodone-acetaminophen 5-325 mg tablet 120 30 AdamaDaisy baker S [facility] 11/14/2017 02/13/2018 carisoprodol 350 mg tablet 90 30 AdamaDaisy S [facility] 01/13/2018 01/19/2018 vimpat 100 mg tablet 60 30 Finesse Alberto MD 11/14/2017 01/14/2018 carisoprodol 350 mg tablet 90 30 AdamaDaisy baker S [facility] 01/12/2018 01/14/2018 hydrocodone-acetaminophen 5-325 mg tablet 120 30 AdamaDaisy S [facility] 07/15/2017 12/20/2017 vimpat 100 mg tablet 60 30 Stecarissa Sky [facility] 11/14/2017 12/15/2017 carisoprodol 350 mg tablet 90 30 AdamaDaisy S [facility] 12/15/2017 12/15/2017 hydrocodone-acetaminophen 5-325 mg tablet 120 30 AdamaDaisy S [facility] 07/15/2017 11/17/2017 vimpat 100 mg tablet 60 30 Stecarissa Sky [facility] 11/14/2017 11/14/2017 carisoprodol 350 mg tablet 90 30 AdamaDaisy S [facility] 11/14/2017 11/14/2017 hydrocodone-acetaminophen 5-325 mg tablet 120 30 AdamaDaisy S [facility] 10/27/2017 10/28/2017 tramadol hcl 50 mg tablet 10 3 Sven Wooten 07/15/2017 09/23/2017 vimpat 100 mg tablet 60 30 Ronen Nathannie [facility] 07/14/2017 09/15/2017 carisoprodol 350 mg tablet 90 30 AdamaDaisy baker S [facility] 09/09/2017 09/15/2017 hydrocodone-acetaminophen 5-325 mg tablet 120 30 AdamaDaisy S [facility] 07/15/2017 08/22/2017 vimpat 100 mg tablet 60 30 Stethers, Sky [facility] 07/14/2017 08/15/2017 carisoprodol 350 mg tablet 90 30 AdamaDaisy baker S [facility] 08/15/2017 08/15/2017 hydrocodone-acetaminophen 5-325 mg tablet 120 30 AdamaDaisy baker S [facility] 07/15/2017 07/21/2017 vimpat 100 mg tablet 60 30 Sky Nathan [facility] 07/14/2017 07/14/2017 hydrocodone-acetaminophen 5-325 mg tablet 120 30 AdamaDaisy baker S [facility] 07/14/2017 07/14/2017 carisoprodol 350 mg tablet 90 30 AdamaDaisy baker S [facility] 12/17/2016 06/16/2017 vimpat 100 mg tablet 60 30 Sky Nathan [facility] 05/10/2017 06/13/2017 carisoprodol 350 mg tablet 60 30 Buckingham, Keith Siu MD 06/13/2017 06/13/2017 hydrocodone-acetaminophen 5-325 mg tablet 120 30 AdamaDaisy baker S [facility] 12/17/2016 05/12/2017 vimpat 100 mg tablet 60 30 Sky Nathan [facility] 05/10/2017 05/12/2017 carisoprodol 350 mg tablet 60 30 BuckinghamKeith MD 05/10/2017 05/12/2017 hydrocodone-acetaminophen 5-325 mg tablet 90 30 Buckingham, Keith Siu MD 12/17/2016 04/12/2017 vimpat 100 mg tablet 60 30 Sky Nathan [facility] 04/12/2017 04/12/2017 carisoprodol 350 mg tablet 90 30 AdamaDaisy baker S [facility] 04/12/2017 04/12/2017 hydrocodone-acetaminophen 5-325 mg tablet 120 30 AdamaDaisy S [facility] 03/08/2017 03/11/2017 hydrocodone-acetaminophen 5-325 mg tablet 120 30 AdamaDaisy S [facility] 03/08/2017 03/08/2017 carisoprodol 350 mg tablet 90 30 AdamaDaisy S [facility] 12/17/2016 03/07/2017 vimpat 100 mg tablet 60 30 Sky Nathan [facility] Patient Name: Toshia Bermudez Date: 1980 Address: [address] [place] [address] Sex: Female Rx Written Rx Dispensed Drug Quantity Days Supply Prescriber Name 10/17/2017 10/17/2017 hydrocodone-acetaminophen 5-325 mg tablet 120 30 Daisy Galan NP 10/17/2017 10/17/2017 carisoprodol 350 mg tablet 90 30 Daisy Galan [facility]"
--- NOTE | 2018-02-15 23:07 | DS ---
CC: Dr. Boone * DISCHARGE SUMMARY: DATE OF ADMISSION: DATE OF DISCHARGE: 02/15/18 HOSPITAL COURSE: This 37-year-old woman presented with a complaint "I have blood in the stool." She also had abdominal pain. She said she had had 30 bowel movements, all liquid. She denied sick contacts, she denied fever chills , nausea, vomiting. The rest of the history is detailed in the admission note. She did receive antibiotics for may be the first 24 hours. She was seen in consultation by Dr. Hurley. He did flexible sigmoidoscopy, which gave a typical appearance. The appearance at sigmoidoscopy was typical of a ischemic colitis. Dr. Hurley also noted that there appeared to be vascular calcification in the region of the mesentry. The patient gradually improved although she still had some bloody diarrhea and significant pain at the time of discharge although both of these things were improving. I emphasized to the patient, the need for her to quit smoking and this was most likely the major factor contributing to her having ischemic colitis at such young age. She appeared to be motivated to stop smoking. I told her that smoking would affect circulation throughout her entire body and lead to other problems as well. She did have a lipid profile while here. Her LDL was 99, cholesterol 161, triglycerides 165, HDL 29.2. FINAL DIAGNOSES: 1. Ischemic colitis. 2. Hypertension. 3. Morbid obesity. 4. Tobacco use disorder. 5. Fibromyalgia. DISCHARGE MEDICATIONS: 1. Oxycodone 5 mg every 4 hours p.r.n. dispensed 12. 2. Hydrocodone/Acetaminophen 5/325 one every 6 hours p.r.n. 3. Carisoprodol 350 mg t.i.d. p.r.n. 4. Citalopram 20 mg daily. 5. Amitriptyline 125 mg at bedtime. 6. Omeprazole 40 mg daily. 7. Lisinopril/hydrochlorothiazide 20/12.5 one daily. 8. Lacosamide 100 mg b.i.d. [id number]/[facility] #: [id number] [facility]
== END 2018-02-15 12:15 | disposition home or self-care (01) ==
LOC: ED 11:52 → SSU 15:51
PROVIDERS: ADMIT Internal Medicine; ATTEND Internal Medicine
PROC: 0DBM8ZX Excision of Descending Colon, Via Natural or Artificial Opening Endoscopic, Diagnostic (ICD-10-PCS; principal; 2018-02-14)
DX: A41.9 Sepsis, unspecified organism (principal); K55.9 Vascular disorder of intestine, unspecified; K62.5 Hemorrhage of anus and rectum; I10 Essential (primary) hypertension; E66.01 Morbid (severe) obesity due to excess calories; Z68.41 Body mass index [BMI] 40.0-44.9, adult; F17.210 Nicotine dependence, cigarettes, uncomplicated; M79.7 Fibromyalgia; G40.909 Epilepsy, unspecified, not intractable, without status epilepticus; Z79.899 Other long term (current) drug therapy; Z88.8 Allergy status to other drugs, medicaments and biological substances
CPT/HCPCS: 36415; 74176; 80048; 80053; 80061; 85014; 85018; 85025; 85610; 85652; 85730; 86140; 86850; 86900; 86901; 87045; 87046; 87899; 88305; 96365; 96366; 96367; 96375; 99156; 99157; 99284; A9270-GY; G0378; J0744; J0780; J2250; J2270; J3010; J3490

== ENCOUNTER → 2018-12-01 10:39 | Emergency (ER) | payer OTHER ==
[~2018-12-01 10:39] MED LIST: Morphine 10 MG/ML VIAL (1 ml) IV ONE; NS 0.9% 1000 ML** 1,000 ML IV ONE; Ondansetron INJ* 2 MG/ML VIAL IV ONE
--- NOTE | 2018-12-01 12:23 | ED ---
Abdominal Pain/Female - HPI Summary HPI Summary: This patient is a 38 year old female presenting to [facility] accompanied by with a chief complaint of right flank pain since yesterday. Patient states that pain was sudden onset when she was going to the bathroom. Due to a long hx of kidney stones, patient thinks this pain is kidney stones again. The pain is rated 8.5/10 in severity. Symptoms aggravated by nothing. Symptoms alleviated by nothing. Patient additionally notes increased sleeping and fatigue, as well as a new onset sleepwalking. Patient also states she has had a persistent cough for 3 months. - History of Current Complaint Chief Complaint: EDFlankPain Stated Complaint: RIGHT SIDED FLANK PAIN/CANT STAY AWAKE/COUGH PER P Time Seen by Provider: 12/01/18 12:14 Hx Obtained From: Patient Hx Last Menstrual Period: 08/25/12 Onset/Duration: Sudden Onset, Lasting Days, Still Present Timing: Constant Severity Currently: Moderate Pain Intensity: 9 - 8.5 Pain Scale Used: 0-10 Numeric Location: Flank - right Radiates: No Aggravating Factor(s): Nothing Alleviating Factor(s): Nothing Associated Signs and Symptoms: Positive: Other: - cough, increased sleeping, fatigue Allergies/Adverse Reactions: Allergies Allergy/AdvReac Type Severity Reaction Status Date / Time ketorolac [From Toradol] Allergy Swelling Verified 12/01/18 10:53 Of Face,Lips,& Throat PMH/Surg Hx/FS Hx/Imm Hx Previously Healthy: No Endocrine/Hematology History: Denies: Hx Anticoagulant Therapy, Hx Diabetes, Hx Thyroid Disease, Other Endocrine/Hematological Disorders Cardiovascular History: Reports: Hx Hypertension Denies: Hx Congestive Heart Failure, Hx Coronary Artery Disease, Hx Hypercholesterolemia, Hx Pacemaker/ICD, Other Cardiovascular Problems/Disorders Respiratory History: Denies: Hx Asthma, Hx Chronic Obstructive Pulmonary Disease (COPD), Other Respiratory Problems/Disorders GI History: Reports: Hx Gall Bladder Disease, Other GI Disorders - appendectomy , rashi History: Reports: Hx Kidney Stones, Hx Renal Disease - Hx Kidney Stones, Other Problems/Disorders - hx of kidney stones - lithotripsy w/ stents Musculoskeletal History: Reports: Hx Arthritis, Hx Back Problems, Hx Fibromyalgia Denies: Other Musculoskeletal History Sensory History: Reports: Hx Contacts or Glasses Denies: Hx Hearing Aid, Other Sensory Impairments Opthamlomology History: Reports: Hx Contacts or Glasses Denies: Other Sensory Impairments Neurological History: Reports: Hx Headaches, Hx Seizures, Other Neuro Impairments/Disorders - fibromyalgia Denies: Hx Dementia Psychiatric History: Reports: Hx Anxiety, Hx Depression Denies: Hx Substance Abuse, Other Psychiatric Issues/Disorders - Cancer History Cancer Type, Location and Year: cervical CA first dx May 2012 - Surgical History Surgery Procedure, Year, and Place: Hysterectomy 2012, tubal ligation 2000, appendectomy and cholecystectomy within last ten years, tonsillectomy and adenoidectomy 2003, stents in kidneys 2010, kidneystones lithotripsy 2009 - Immunization History Date of Tetanus Vaccine: Unk Date of Influenza Vaccine: None Infectious Disease History: No Infectious Disease History: Reports: Hx of Known/Suspected MRSA - Left armpit 4- 5 years ago Denies: Hx Hepatitis, Hx Human Immunodeficiency Virus (HIV), History Other Infectious Disease, Traveled Outside the [place] in Last 30 Days - Family History Known Family History: Positive: Cardiac Disease, Hypertension - Social History Lives: With Family Alcohol Use: None Hx Substance Use: No Substance Use Type: Reports: None Hx Tobacco Use: Yes Smoking Status (MU): Heavy Every Day Tobacco Smoker Type: Cigarettes Amount Used/How Often: < 1/2 ppd Length of Time of Smoking/Using Tobacco: 23 years Review of Systems Negative: Fever Positive: Cough Positive: flank pain - right Neurological: Other - fatigue, increased sleep, sleepwalking All Other Systems Reviewed And Are Negative: Yes Physical Exam - Summary Physical Exam Summary: VITAL SIGNS: Reviewed. GENERAL: Patient is a well-developed and obese female who is lying comfortable in the stretcher. Patient is not in any acute respiratory distress. HEAD AND FACE: No signs of trauma. No ecchymosis, hematomas or skull depressions. No sinus tenderness. EYES: PERRLA, EOMI x 2, No injected conjunctiva, no nystagmus. EARS: Hearing grossly intact. Ear canals and tympanic membranes are within normal limits. MOUTH: Oropharynx within normal limits. NECK: Supple, trachea is midline, no adenopathy, no JVD, no carotid bruit, no c- spine tenderness, neck with full ROM. CHEST: Symmetric, no tenderness at palpation LUNGS: Clear to auscultation bilaterally. No wheezing or crackles. CVS: Regular rate and rhythm, S1 and S2 present, no murmurs or gallops appreciated. ABDOMEN: Soft.. No signs of distention. No rebound no guarding, and no masses palpated. Bowel sounds are normal. Right flank pain EXTREMITIES: FROM in all major joints, no edema, no cyanosis or clubbing. NEURO: Alert and oriented x 3. No acute neurological deficits. Speech is normal and follows commands. SKIN: Dry and warm Triage Information Reviewed: Yes Vital Signs On Initial Exam: Initial Vitals Temp Pulse Resp BP Pulse Ox 99.0 F 122 20 114/89 94 12/01/18 10:49 12/01/18 10:49 12/01/18 10:49 12/01/18 10:49 12/01/18 10:49 Vital Signs Reviewed: Yes Diagnostics - Vital Signs Vital Signs Temp Pulse Resp BP Pulse Ox 12/01/18 10:49 99.0 F 122 20 114/89 94 - Laboratory Result Diagrams: 12/01/18 12:52 12/01/18 12:52 Lab Statement: Any lab studies that have been ordered have been reviewed, and results considered in the medical decision making process. - Radiology CXR Radiology Interpretation Completed By: Radiologist Summary of Radiographic Findings: No evidence for acute intrathoracic disease. ED physician has reviewed this report. - CT CT Abd/Pel CT Interpretation Completed By: Radiologist Summary of CT Findings: CT Abd/Pel reveals, per radiologist, IMPRESSION: NO HYDRONEPHROSIS OR NEPHROLITHIASIS. ED physician has reviewed this radiology report. Re-Evaluation - Re-Evaluation First Eval Re-Evaluation Time: 15:15 Change: Improved Comment: I spoke with the patient concerning discharge home. Abdominal Pain Fem Course/Dx - Course Course Of Treatment: This patient is a 38 year old female presenting to [facility] accompanied by with a chief complaint of right flank pain since yesterday. Patient states that pain was sudden onset when she was going to the bathroom. Due to a long hx of kidney stones, patient thinks this pain is kidney stones again. The pain is rated 8.5/10 in severity. Symptoms aggravated by nothing. Symptoms alleviated by nothing. Patient additionally notes increased sleeping and fatigue, as well as a new onset sleepwalking. Patient also states she has had a persistent cough for 3 months. Blood work without any significant abnormality except for WBCs of 13.4, glucose of 101, CRP 19.4, urinalysis negative for UTI. Chest x-ray shows no acute pathology. Abdominopelvic CT impression: No hydronephrosis or nephrolithiasis. In the ED course the patient was given Zofran for nausea and morphine for pain. After these medications the patients symptoms are resolved. I discussed all my findings and test results with the patient will need to follow up with the primary care physician. Patient is hemodynamically stable alert and oriented 3. - Diagnoses Provider Diagnoses: Flank pain, URI (upper respiratory infection) Discharge - Sign-Out/Discharge Documenting (check all that apply): Patient Departure - Patient will be discharged home. Patient Received Moderate/Deep Sedation with Procedure: No - Discharge Plan Condition: Good Disposition: HOME Patient Education Materials: Upper Respiratory Infection (ED), Flank Pain (ED) Referrals: Keith Boone MD [Primary Care Provider] - 7 Days Additional Instructions: FOLLOW UP WITH YOUR PRIMARY CARE PHYSICIAN IN ONE WEEK. RETURN TO THE EMERGENCY DEPARTMENT FOR ANY NEW OR WORSENING SYMPTOMS. - Billing Disposition and Condition Condition: GOOD Disposition: Home - Attestation Statements Document Initiated by Ruchi: Yes Documenting Scribe: Eriberto Ulloa Provider For Whom Ruchi is Documenting (Include Credential): Edmar Valentine MD Scribe Attestation: I, Eriberto Ulloa, scribed for Edmar Valentine MD on 12/01/18 at 1715. Scribe Documentation Reviewed: Yes Provider Attestation: The documentation as recorded by the Eriberto prince accurately reflects the service I personally performed and the decisions made by me, Edmar Valentine MD Status of Scribe Document: Ready
[2018-12-01 12:50] LABS: Urine Appearance Clear; Urine Bilirubin Negative (Negative); Urine Blood Negative (Negative); Urine Color Yellow; Urine Glucose Negative (Negative); Urine Ketones Trace (Negative); Urine Nitrite Negative (Negative); Urine Protein Negative (Negative); Urine Specific Gravity 1.024 (1.010-1.030); Urine Urobilinogen Negative (Negative)
[2018-12-01 13:02] LABS: ABS Basophils 0.1 10^3/ul (0-0.2); ABS Eosinophils 0.2 10^3/ul (0-0.6); ABS Lymphocytes 3.7 10^3/ul (1.0-4.8); ABS Monocytes 0.8 10^3/ul (0-0.8); ABS Neutrophils 8.6 10^3/ul (1.5-7.7); ABS Nucleated RBC 0 10^3/ul; Eosinophil % 1.3 %; Hematocrit 44 % (33-41); Hemoglobin 14.6 g/dL (12.0-16.0); Mean Corpuscular HGB Conc 33 g/dL (31-36); Mean Corpuscular Hemoglobin 28 pg (27-31); Mean Corpuscular Volume 84 fL (80-97); Mean Platelet Volume 9.3 fL (7.4-10.4); Nucleated Red Blood Cells % 0.1; Platelet Count 263 10^3/uL (150-450); Red Blood Count 5.29 10^6 /uL (3.70-4.87); Red Cell Distribution Width 15 % (10.5-15); White Blood Count 13.4 10^3/uL (3.5-10.8)
[2018-12-01 13:25] LABS: HCG Pregnancy 1.13 mIU/mL
[2018-12-01 13:40] LABS: Albumin 3.9 g/dL (3.2-5.2); Anion Gap 7 mmol/L (2-11); CO2 Carbon Dioxide 28 mmol/L (22-32); Chloride 103 mmol/L (101-111); Potassium 3.8 mmol/L (3.5-5.0); Sodium 138 mmol/L (135-145)
[2018-12-01 13:47] LABS: ALT 26 U/L (7-52); AST 18 U/L (13-39); Albumin/Globulin Ratio 1.1 (1-3); Alkaline Phosphatase 100 U/L (34-104); BUN/Creatinine Ratio 11.8 (8-20); Blood Urea Nitrogen 9 mg/dL (6-24); Creatine Kinase 38 U/L (10-223); EGFR Non-African American 84.3 (>60); Globulin 3.5 g/dL (2-4); Glucose 101 mg/dL (70-100); Total Protein 7.4 g/dL (6.4-8.9)
[2018-12-01 15:35] VITALS: BP 109/74
== END | disposition home or self-care (01) ==
LOC: ED 10:39
DX: R10.9 Unspecified abdominal pain (principal); J06.9 Acute upper respiratory infection, unspecified; F17.210 Nicotine dependence, cigarettes, uncomplicated; I10 Essential (primary) hypertension; Z87.442 Personal history of urinary calculi; Z85.41 Personal history of malignant neoplasm of cervix uteri; F41.9 Anxiety disorder, unspecified; F32.9 Major depressive disorder, single episode, unspecified; R11.0 Nausea
CPT/HCPCS: 36415; 71046; 74176; 80053; 81003; 82550; 83605; 83690; 84702; 85025; 86140; 96361; 96374; 96375; 99282; J2270; J2405

== ENCOUNTER 2018-12-25 18:47 | Emergency (ER) | payer OTHER ==
[2018-12-25] MEDS ORDERED: Amoxicillin/Clavulanate TAB* 875 MG PO ONE (19:34)
--- NOTE | 2018-12-25 19:36 | ED ---
Throat Pain/Nasal Congestion - HPI Summary HPI Summary: Patient complains of left side lower dental pain and left side facial swelling 4 days. Patient states she can't find a dentist who will treat her due to history of seizures. Patient states possible purulent discharge. Denies fever , cough, sore throat, CP, SOB, N/V/D, abdominal pain, change in urine, change in BM. Patient took ibuprofen 600 mg at 3 PM. History of dental caries, seizures, fibromyalgia. - History of Current Complaint Chief Complaint: EDDentalPain Time Seen by Provider: 12/25/18 19:01 Hx Obtained From: Patient Onset/Duration: Gradual Onset, Lasting Days Severity: Moderate Associated Signs And Symptoms: Positive: Negative Cough: None - Allergies/Home Medications Allergies/Adverse Reactions: Allergies Allergy/AdvReac Type Severity Reaction Status Date / Time ketorolac [From Toradol] Allergy Swelling Verified 12/25/18 18:55 Of Face,Lips,& Throat PMH/Surg Hx/FS Hx/Imm Hx Endocrine/Hematology History: Denies: Hx Anticoagulant Therapy, Hx Diabetes, Hx Thyroid Disease, Other Endocrine/Hematological Disorders Cardiovascular History: Reports: Hx Hypertension Denies: Hx Congestive Heart Failure, Hx Coronary Artery Disease, Hx Hypercholesterolemia, Hx Pacemaker/ICD, Other Cardiovascular Problems/Disorders Respiratory History: Denies: Hx Asthma, Hx Chronic Obstructive Pulmonary Disease (COPD), Other Respiratory Problems/Disorders GI History: Reports: Hx Gall Bladder Disease, Other GI Disorders - appendectomy , rashi History: Reports: Hx Kidney Stones, Hx Renal Disease - Hx Kidney Stones, Other Problems/Disorders - hx of kidney stones - lithotripsy w/ stents Musculoskeletal History: Reports: Hx Arthritis, Hx Back Problems, Hx Fibromyalgia Denies: Other Musculoskeletal History Sensory History: Reports: Hx Contacts or Glasses Denies: Hx Hearing Aid, Other Sensory Impairments Opthamlomology History: Reports: Hx Contacts or Glasses Denies: Other Sensory Impairments Neurological History: Reports: Hx Headaches, Hx Seizures, Other Neuro Impairments/Disorders - fibromyalgia Denies: Hx Dementia Psychiatric History: Reports: Hx Anxiety, Hx Depression Denies: Hx Substance Abuse, Other Psychiatric Issues/Disorders - Cancer History Cancer Type, Location and Year: cervical CA first dx May 2012 - Surgical History Surgery Procedure, Year, and Place: Hysterectomy 2012, tubal ligation 2000, appendectomy and cholecystectomy within last ten years, tonsillectomy and adenoidectomy 2003, stents in kidneys 2010, kidneystones lithotripsy 2010 - Immunization History Date of Tetanus Vaccine: Unk Date of Influenza Vaccine: None Infectious Disease History: No Infectious Disease History: Reports: Hx of Known/Suspected MRSA - Left armpit 4- 5 years ago Denies: Hx Hepatitis, Hx Human Immunodeficiency Virus (HIV), History Other Infectious Disease, Traveled Outside the [place] in Last 30 Days - Family History Known Family History: Positive: Cardiac Disease, Hypertension - Social History Alcohol Use: None Hx Substance Use: No Substance Use Type: Reports: None Hx Tobacco Use: Yes Smoking Status (MU): Heavy Every Day Tobacco Smoker Type: Cigarettes Amount Used/How Often: < 1/2 ppd Length of Time of Smoking/Using Tobacco: 23 years Review of Systems Constitutional: Negative Eyes: Negative Positive: Dental Pain Cardiovascular: Negative Respiratory: Negative Gastrointestinal: Negative Genitourinary: Negative Musculoskeletal: Negative Skin: Negative Neurological: Negative Psychological: Normal All Other Systems Reviewed And Are Negative: Yes Physical Exam - Summary Physical Exam Summary: Facial swelling left side jaw. Multiple dental caries. No apical abscess or purulent drainage noted. No oral lesions noted. Full range of motion of jaw. Triage Information Reviewed: Yes Vital Signs On Initial Exam: Initial Vitals Temp Pulse Resp BP Pulse Ox 98.7 F 101 18 119/80 95 12/25/18 18:50 12/25/18 18:50 12/25/18 18:50 12/25/18 18:50 12/25/18 18:50 Vital Signs Reviewed: Yes Appearance: Positive: Well-Appearing Skin: Positive: Warm Head/Face: Positive: Normal Head/Face Inspection Eyes: Positive: Normal ENT: Positive: Normal ENT inspection Dental: Positive: Gross Decay/Caries @. Negative: Abscess @ Neck: Positive: Supple Respiratory/Lung Sounds: Positive: Clear to Auscultation Cardiovascular: Positive: Normal Abdomen Description: Positive: Nontender Musculoskeletal: Positive: Normal Neurological: Positive: Normal Psychiatric: Positive: Normal AVPU Assessment: Alert - [place] Coma Scale Best Eye Response: 4 - Spontaneous Best Motor Response: 6 - Obeys Commands Best Verbal Response: 5 - Oriented Coma Scale Total: 15 Diagnostics - Vital Signs Vital Signs Temp Pulse Resp BP Pulse Ox 12/25/18 18:50 98.7 F 101 18 119/80 95 - Laboratory Lab Statement: Any lab studies that have been ordered have been reviewed, and results considered in the medical decision making process. EENT Course/Dx - Course Course Of Treatment: Patient complains of left side lower dental pain and left side facial swelling 4 days. Patient states she can't find a dentist who will treat her due to history of seizures. Patient states possible purulent discharge. Denies fever, cough, sore throat, CP, SOB, N/V/D, abdominal pain, change in urine, change in BM. Patient took ibuprofen 600 mg at 3 PM. History of dental caries, seizures, fibromyalgia. Physical exam:Facial swelling left side jaw. Multiple dental caries. No apical abscess or purulent drainage noted. No oral lesions noted. Full range of motion of jaw. Vital signs within normal limits. Patient has existing Rx for hydrocodone. Patient given Rx for Augmentin. Advised to follow-up with dentist. Patient understands and approves of the plan. - Diagnoses Provider Diagnoses: Pain, dental, Left facial swelling Discharge - Sign-Out/Discharge Documenting (check all that apply): Patient Departure Patient Received Moderate/Deep Sedation with Procedure: No - Discharge Plan Condition: Stable Disposition: HOME Prescriptions: Amoxicillin/Clavulanate TAB* [Augmentin TAB 875*] 875 mg PO BID #20 tab Patient Education Materials: Toothache (ED) Referrals: Keith Boone MD [Primary Care Provider] - Additional Instructions: Take antibiotics as directed. Follow up with your dentist as soon as possible. Use existing prescription for hydrocodone for pain control. Add ibuprofen 600 mg every 6 hours. Return to the ED for any new or worsening symptoms. - Billing Disposition and Condition Condition: STABLE Disposition: Home
[2018-12-25 20:01] VITALS: BP 121/67
== END 2018-12-25 20:00 | disposition home or self-care (01) ==
LOC: ED 18:47
DX: K08.89 Other specified disorders of teeth and supporting structures (principal); R60.9 Edema, unspecified; Z85.41 Personal history of malignant neoplasm of cervix uteri; Z87.442 Personal history of urinary calculi; M79.7 Fibromyalgia; I10 Essential (primary) hypertension; F17.210 Nicotine dependence, cigarettes, uncomplicated; K02.9 Dental caries, unspecified
CPT/HCPCS: 99282; A9270-GY